=== PATIENT | female | born 1970 | race Two or more races ===

== ENCOUNTER 2017-08-11 07:55 | Outpatient (CLI) | payer OTHER ==
[~2017-08-11] VITALS: Ht 160 cm; Wt 107.5 kg
[2017-08-11] VITALS (10 sets, daily range): BP systolic 82–124; BP diastolic 51–77
[2017-08-11 08:23] LABS: BASO # 0.1 x10^3/uL (0.0-0.2); BASO % 1 % (0-3); EOS % 4 % (0-3); HEMATOCRIT 38.2 % (36.0-47.0); HEMOGLOBIN 12.4 g/dL (12.0-15.5); LYMPH # 3.2 x10^3/uL (1.0-4.8); LYMPH % 31 % (24-48); MEAN CORPUSCULAR HEMOGLOBIN 27 pg (25-35); MEAN CORPUSCULAR HGB CONC 33 g/dL (31-37); MEAN CORPUSCULAR VOLUME 84 fL (79-100); MONO % 6 % (0-9); NEUT % 58 % (31-73); PLATELET COUNT 426 x10^3/uL (140-400); RED BLOOD COUNT 4.53 x10^6/uL (3.50-5.40); RED CELL DISTRIBUTION WIDTH 16.4 % (11.5-14.5); WHITE BLOOD COUNT 10.4 x10^3/uL (4.0-11.0)
[2017-08-11 08:32] LABS: INR 1.2 (0.8-1.1); PROTHROMBIN TIME PATIENT 14.2 SEC (11.7-14.0)
[2017-08-11] MEDS ORDERED: LIDOCAINE 1% / SOD BICARB 8.4% 20 ML VIAL. IJ ONE ×2 (09:15→09:45)
[2017-08-11] MEDS ORDERED: GABA-586 PO (09:23)
[2017-08-11] MEDS ORDERED: MEDR10TA PO (09:23)
[2017-08-11] MEDS ORDERED: LISI-334 PO (09:23)
[2017-08-11] MEDS ORDERED: METF500T4 PO (09:23)
[2017-08-11] MEDS ORDERED: LEVO100T5 PO (09:23)
[2017-08-11] MEDS ORDERED: fentaNYL PF VIAL 100 MCG/2 ML VIAL ONE (09:31)
[2017-08-11] MEDS ORDERED: MIDAZOLAM HCL/PF 5 MG/5 ML VIAL. ONE (09:31)
[2017-08-11] MEDS ORDERED: MIDAZOLAM HCL/PF 5 MG/5 ML VIAL. IV ONE (09:45)
[2017-08-11] MEDS ORDERED: fentaNYL PF VIAL 100 MCG/2 ML VIAL IV ONE (09:45)
--- NOTE | 2017-08-11 10:44 | RAD ---
CT-guided bone marrow biopsy. 08/11/2017 10:40 AM Indication: CTBXBM/Leukocytosis Discussion: The risks and benefits of the procedure, including but not limited to, bleeding and infection were discussed patient. Informed consent was obtained. The patient was brought to the CT scanner and placed in the prone position. A timeout procedure was performed. Boiler Room Operator CT imaging of the pelvis demonstrated left ilium amenable to bone marrow biopsy. The overlying soft tissues were prepped and draped using maximum sterile barrier technique. 1% lidocaine without epinephrine was administered for local anesthesia. Under intermittent CT guidance, an OncControl needle was advanced into the bone marrow of the left iliac crest. 2 Aspirates and 1 core biopsy samples were obtained. Samples were delivered to pathology was present at the time of procedure. The needle was removed and manual pressure held to achieve hemostasis. No immediate complications were identified. The procedure was performed under conscious sedation including continuous cardiopulmonary monitoring via dedicated sedation nurse. Sedation time: 20 minutes Impression: Successful CT-guided bone marrow biopsy of the left iliac crest . PQRS Compliance Statement: One or more of the following individualized dose reduction techniques were utilized for this examination: 1. Automated exposure control 2. Adjustment of the mA and/or kV according to patient size 3. Use of iterative reconstruction technique
== END 2017-08-11 11:20 | disposition home or self-care (01) ==
LOC: INTRAD 07:55
PROVIDERS: ATTEND Internal Medicine Hematology & Oncology
DX: D72.829 Elevated white blood cell count, unspecified (principal); G62.9 Polyneuropathy, unspecified; I10 Essential (primary) hypertension; Z86.69 Personal history of other diseases of the nervous system and sense organs; Z90.49 Acquired absence of other specified parts of digestive tract; Z88.0 Allergy status to penicillin; Z79.01 Long term (current) use of anticoagulants
CPT/HCPCS: 36415; 38221; 77012; 85025; 85610; 88184; 88185; 88237; 99152; G0364; J2250; J3010

== ENCOUNTER 2017-10-13 13:51 | Emergency (ER) | payer OTHER ==
[2017-10-13 14:58] LABS: ADD MAN DIFF? NO
[2017-10-13 15:00] LABS: BASO # 0.1 x10^3/uL (0.0-0.2); BASO % 1 % (0-3); EOS # 0.6 x10^3/uL (0.0-0.7); EOS % 4 % (0-3); HEMATOCRIT 36.2 % (36.0-47.0); LYMPH % 20 % (24-48); MEAN CORPUSCULAR HEMOGLOBIN 28 pg (25-35); MEAN CORPUSCULAR HGB CONC 33 g/dL (31-37); MEAN CORPUSCULAR VOLUME 85 fL (79-100); MONO # 0.9 x10^3/uL (0.0-1.1); MONO % 6 % (0-9); NEUT # 10.5 x10^3uL (1.8-7.7); NEUT % 70 % (31-73); PLATELET COUNT 443 x10^3/uL (140-400); RED BLOOD COUNT 4.24 x10^6/uL (3.50-5.40); RED CELL DISTRIBUTION WIDTH 16.3 % (11.5-14.5); WHITE BLOOD COUNT 15.1 x10^3/uL (4.0-11.0)
[2017-10-13] MEDS: IV NORMAL SALINE 1000ML BAG 1,000 ML IV (15:04)
[2017-10-13] MEDS: ONDANSETRON PF 4 MG/2 ML VIAL. IV (15:04)
[2017-10-13] MEDS: fentaNYL PF VIAL 100 MCG/2 ML VIAL IV (15:05)
[2017-10-13 15:11] LABS: ANION GAP 12 (6-14); BLOOD UREA NITROGEN 12 mg/dL (7-20); BUN/CREATININE RATIO 20 (6-20); CALCIUM 8.7 mg/dL (8.5-10.1); CARBON DIOXIDE 25 mmol/L (21-32); CHLORIDE 103 mmol/L (98-107); CREATININE 0.6 mg/dL (0.6-1.0); GFR 108.1; GLUCOSE 93 mg/dL (70-99); POTASSIUM 3.9 mmol/L (3.5-5.1); SODIUM 140 mmol/L (136-145)
[2017-10-13 15:19] LABS: ALBUMIN 3.1 g/dL (3.4-5.0); ALBUMIN/GLOBULIN RATIO 0.7 (1.0-1.7); ALK PHOS 76 U/L (46-116); ALT (SGPT) 10 U/L (14-59); AST (SGOT) 17 U/L (15-37); LIPASE 88 U/L (73-393); TOTAL BILIRUBIN 0.4 mg/dL (0.2-1.0); TOTAL PROTEIN 7.3 g/dL (6.4-8.2)
== END 2017-10-13 16:37 | disposition home or self-care (01) ==
LOC: ER 13:51
DX: R10.10 Upper abdominal pain, unspecified (principal); E11.9 Type 2 diabetes mellitus without complications; E03.9 Hypothyroidism, unspecified; I10 Essential (primary) hypertension; Z90.49 Acquired absence of other specified parts of digestive tract; Z88.0 Allergy status to penicillin
CPT/HCPCS: 36415; 76700; 80053; 83690; 85025; 93005; 96361; 96374; 96375; 99285-25; J2405; J3010; J7030

== ENCOUNTER → 2018-03-11 | Outpatient (CLI) | payer OTHER | END | disposition home or self-care (01) | LOC: KCIC US 15:05 | DX: N83.01 Follicular cyst of right ovary (principal); N88.8 Other specified noninflammatory disorders of cervix uteri | CPT/HCPCS: 76830; 76856 ==

== ENCOUNTER 2018-05-28 20:37 | Emergency (ER) | payer OTHER ==
[~2018-05-28] VITALS: Ht 160 cm; Wt 90.7 kg
[~2018-05-28 20:37] MED LIST: GABA-586 PO; LEVO100T5 PO; LISI-334 PO; MEDR10TA PO; METF500T16 PO
[2018-05-28] MEDS ORDERED: fentaNYL PF VIAL 100 MCG/2 ML VIAL IV ONE (21:00)
[2018-05-28 21:11] LABS: BASO # 0.2 x10^3/uL (0.0-0.2); BASO % 1 % (0-3); EOS # 0.4 x10^3/uL (0.0-0.7); EOS % 2 % (0-3); HEMATOCRIT 36.7 % (36.0-47.0); HEMOGLOBIN 12.4 g/dL (12.0-15.5); LYMPH # 5.2 x10^3/uL (1.0-4.8); LYMPH % 28 % (24-48); MEAN CORPUSCULAR HEMOGLOBIN 27 pg (25-35); MEAN CORPUSCULAR HGB CONC 34 g/dL (31-37); MEAN CORPUSCULAR VOLUME 81 fL (79-100); MONO # 1.3 x10^3/uL (0.0-1.1); MONO % 7 % (0-9); NEUT # 11.5 x10^3uL (1.8-7.7); NEUT % 62 % (31-73); PLATELET COUNT 439 x10^3/uL (140-400); RED BLOOD COUNT 4.53 x10^6/uL (3.50-5.40); RED CELL DISTRIBUTION WIDTH 15.4 % (11.5-14.5); WHITE BLOOD COUNT 18.7 x10^3/uL (4.0-11.0)
[2018-05-28 21:12] LABS: BILIRUBIN,URINE NEGATIVE (NEG); CLARITY,URINE CLEAR; COLOR,URINE YELLOW; NITRITE,URINE NEGATIVE (NEG); PH,URINE 6.5; PROTEIN,URINE 100 mg/dL (NEG-TRACE); UROBILINOGEN,URINE 0.2 mg/dL (0.2 mg/dL)
[2018-05-28 21:18] LABS: BACTERIA,URINE 0 /HPF (0-FEW); RBC,URINE TNTC /HPF (0-2); SQUAMOUS EPITHELIAL CELL,UR FEW /LPF; WBC,URINE 0 /HPF (0-4)
[2018-05-28 21:19] LABS: CALCIUM 9.2 mg/dL (8.5-10.1); GFR 59.7; POTASSIUM 3.4 mmol/L (3.5-5.1)
[2018-05-28 21:25] LABS: ALBUMIN 3.4 g/dL (3.4-5.0); ALBUMIN/GLOBULIN RATIO 0.8 (1.0-1.7); TOTAL BILIRUBIN 0.8 mg/dL (0.2-1.0); TOTAL PROTEIN 7.5 g/dL (6.4-8.2)
[2018-05-28] MEDS ORDERED: CONTRAST GIVEN. MC PRN (21:30)
[2018-05-28] MEDS ORDERED: IOHEXOL 240 MG/ML 50ML VIAL. PO ONE (22:00)
[2018-05-28] MEDS ORDERED: IOHEXOL 300 MG/ML 100ML VIAL. IV ONE (22:00)
[2018-05-28 23:06] LABS: U PREG PATIENT NEGATIVE (NEG)
--- NOTE | 2018-05-28 23:08 | PHYS DOC ---
Past Medical History Past Medical History: Diabetes-Type II, Hypertension, Hypothyroid Past Surgical History: Cholecystectomy, Alcohol Use: None Drug Use: None Adult General Chief Complaint Chief Complaint: FLANK PAIN HPI HPI Patient is a 48 year old female who presents with left flank pain and upper quadrant pain. The patient was seen by Dr. Yao yesterday but never filled her prescription. She states that her pain has worsened and she has also been having anxiety attacks. She denies chest pain, shortness of air, nausea, vomiting or fever. Review of Systems Review of Systems Constitutional: Denies fever or chills [] Eyes: Denies change in visual acuity, redness, or eye pain [] HENT: Denies nasal congestion or sore throat [] Respiratory: Denies cough or shortness of breath [] Cardiovascular: No additional information not addressed in HPI [] GI: See history of present illness : Denies dysuria or hematuria [] Musculoskeletal: Denies back pain or joint pain [] Integument: Denies rash or skin lesions [] Neurologic: Denies headache, focal weakness or sensory changes [] Endocrine: Denies polyuria or polydipsia [] All other systems were reviewed and found to be within normal limits, except as documented in this note. Current Medications Current Medications Current Medications Medications (Trade) Dose Ordered Sig/Sohail Start Time Stop Time Status Last Admin Dose Admin Fentanyl Citrate (Fentanyl 2ml Vial) 50 mcg 1X ONCE 05/28/18 21:00 05/28/18 21:01 DC 05/28/18 21:22 50 MCG Info (CONTRAST GIVEN -- Rx MONITORING) 1 each PRN DAILY PRN 05/28/18 21:30 05/30/18 21:29 Iohexol (Omnipaque 240 Mg/ml) 30 ml 1X ONCE 05/28/18 22:00 05/28/18 22:01 DC 05/28/18 00:15 30 ML Iohexol (Omnipaque 300 Mg/ml) 75 ml 1X ONCE 05/28/18 22:00 05/28/18 22:01 DC 05/28/18 00:15 75 ML Lorazepam (Ativan) 2 mg 1X ONCE 05/28/18 21:00 05/28/18 21:01 DC 05/28/18 21:22 2 MG Allergies Allergies Allergies Coded Allergies Type Severity Reaction Last Updated Verified Penicillins Allergy Severe Swelling 08/11/17 Yes Physical Exam Physical Exam Constitutional: Well developed, well nourished, no acute distress, non-toxic appearance. [] HENT: Normocephalic, atraumatic, bilateral external ears normal, oropharynx moist, no oral exudates, nose normal. [] Eyes: PERRLA, EOMI, conjunctiva normal, no discharge. [] Neck: Normal range of motion, no tenderness, supple, no stridor. [] Cardiovascular:Heart rate regular rhythm, no murmur [] Lungs & Thorax: Bilateral breath sounds clear to auscultation [] Abdomen: Bowel sounds normal, left upper quadrant tenderness with guarding, left flank pain with palpation, no masses, no pulsatile masses. [] Skin: Warm, dry, no erythema, no rash. [] Neurologic: Alert and oriented X 3, normal motor function, normal sensory function, no focal deficits noted. [] Psychologic: Patient is extremely anxious Current Patient Data Vital Signs Vital Signs Date Time Temp Pulse Resp B/P (MAP) Pulse Ox O2 Delivery O2 Flow Rate FiO2 05/28/18 21:52 76 22 137/79 (98) 98 Room Air 05/28/18 21:00 97.7 97.7 Lab Values Laboratory Tests Test 05/28/18 20:57 05/28/18 21:02 White Blood Count 18.7 x10^3/uL (4.0-11.0) H Red Blood Count 4.53 x10^6/uL (3.50-5.40) Hemoglobin 12.4 g/dL (12.0-15.5) Hematocrit 36.7 % (36.0-47.0) Mean Corpuscular Volume 81 fL (79-100) Mean Corpuscular Hemoglobin 27 pg (25-35) Mean Corpuscular Hemoglobin Concent 34 g/dL (31-37) Red Cell Distribution Width 15.4 % (11.5-14.5) H Platelet Count 439 x10^3/uL (140-400) H Neutrophils (%) (Auto) 62 % (31-73) Lymphocytes (%) (Auto) 28 % (24-48) Monocytes (%) (Auto) 7 % (0-9) Eosinophils (%) (Auto) 2 % (0-3) Basophils (%) (Auto) 1 % (0-3) Neutrophils # (Auto) 11.5 x10^3uL (1.8-7.7) H Lymphocytes # (Auto) 5.2 x10^3/uL (1.0-4.8) H Monocytes # (Auto) 1.3 x10^3/uL (0.0-1.1) H Eosinophils # (Auto) 0.4 x10^3/uL (0.0-0.7) Basophils # (Auto) 0.2 x10^3/uL (0.0-0.2) Urine Collection Type U cath Urine Color Yellow Urine Clarity Clear Urine pH 6.5 Urine Specific [place] 1.020 Urine Protein 100 mg/dL (NEG-TRACE) Urine Glucose (UA) Negative mg/dL (NEG) Urine Ketones (Stick) Negative mg/dL (NEG) Urine Blood Large (NEG) Urine Nitrite Negative (NEG) Urine Bilirubin Negative (NEG) Urine Urobilinogen Dipstick 0.2 mg/dL (0.2 mg/dL) Urine Leukocyte Esterase Negative (NEG) Urine RBC Tntc /HPF (0-2) Urine WBC 0 /HPF (0-4) Urine Squamous Epithelial Cells Few /LPF Urine Bacteria 0 /HPF (0-FEW) Urine Mucus Slight /LPF Sodium Level 135 mmol/L (136-145) L Potassium Level 3.4 mmol/L (3.5-5.1) L Chloride Level 101 mmol/L (98-107) Carbon Dioxide Level 25 mmol/L (21-32) Anion Gap 9 (6-14) Blood Urea Nitrogen 15 mg/dL (7-20) Creatinine 1.0 mg/dL (0.6-1.0) Estimated GFR (Cockcroft-Gault) 59.7 BUN/Creatinine Ratio 15 (6-20) Glucose Level 145 mg/dL (70-99) H Calcium Level 9.2 mg/dL (8.5-10.1) Total Bilirubin 0.8 mg/dL (0.2-1.0) Aspartate Amino Transferase (AST) 18 U/L (15-37) Alanine Aminotransferase (ALT) 16 U/L (14-59) Alkaline Phosphatase 70 U/L (46-116) Total Protein 7.5 g/dL (6.4-8.2) Albumin 3.4 g/dL (3.4-5.0) Albumin/Globulin Ratio 0.8 (1.0-1.7) L Amylase Level 44 U/L (25-115) Lipase 109 U/L (73-393) Urine Test Negative (NEG) Laboratory Tests 05/28/18 20:57 Laboratory Tests 05/28/18 20:57 EKG EKG [] Radiology/Procedures Radiology/Procedures CT AB Pelv[] Impressions: [facility] [address] [place] [address] IMAGING REPORT Signed PATIENT: THO PRINCE ACCOUNT: [id number] : 1970 LOCATION: ER AGE: 48 SEX: F EXAM STATUS: REG ER ORD. PHYSICIAN: JOSE J WELSH APRN REASON: left upper quadrant pain PROCEDURE: CT ABD PELV W/ORAL&IV CONTRAST PQRS Compliance Statement: One or more of the following individualized dose reduction techniques were utilized for this examination: 1. Automated exposure control 2. Adjustment of the mA and/or kV according to patient size 3. Use of iterative reconstruction technique CT ABD PELV W/ORAL IV CONTRAST Clinical Indication: luq pain; Comparison: Pelvic ultrasound, March 11, 2018. Technique: Helical CT imaging of the abdomen and pelvis is performed after 75 cc of Omnipaque 300 IV contrast. Oral contrast also given. Findings: Mild bilateral dependent atelectasis. Cardiac size normal. Cholecystectomy. The liver, spleen, pancreas, adrenal glands, and abdominal aorta caliber are normal. Right kidney is normal. There is mild left hydronephrosis secondary to a 3 mm calculus at the ureteropelvic junction, image 37. Ureters are otherwise normal. The stomach is normal. No dilated small bowel. No colon wall thickening. The appendix is normal. No abdominal adenopathy or free fluid. Enlarged and myomatous uterus. The largest fibroid is at the fundus measuring up to 6.9 cm. Urinary bladder is mildly distended, otherwise normal. No pelvic free fluid. No acute bone abnormality. IMPRESSION: 1. Mild left obstructive uropathy secondary to a 3 mm calculus at the ureteropelvic junction. 2. Enlarged myomatous uterus. Electronically signed by: Ibrahima Gonzalez MD (05/29/2018 12:50 AM) [facility] DICTATED and SIGNED BY: IBRAHIMA GONZALEZ MD DATE: 05/29/18 0044 Course & Med Decision Making Course & Med Decision Making Pertinent Labs and Imaging studies reviewed. (See chart for details) []The patient has been given fentanyl and Ativan in the emergency department for her pain and anxiety. 2347: This patient was signed over to MICHEAL Amaral\ Patient CT scan shows mild left hydronephrosis second to a 3 mm stone in the uro pelvis junction. Patient also has large uterine fibroids. Patient is sent home with Flomax and tramadol for pain. Patient can take ibuprofen if needed also for pain. She'll use a strainer to collect any stone she may pass. Patient to call urology tomorrow morning. Dragon Disclaimer Dragon Disclaimer This electronic medical record was generated, in whole or in part, using a voice recognition dictation system. Departure Departure Impression: Primary Impression: Kidney stones Disposition: HOME, SELF-CARE Condition: STABLE Referrals: CHRISTINE YAO MD (PCP) DEVEN MENJIVAR MD Patient Instructions: Kidney Stones Additional Instructions: Call urology tomorrow to make an appointment. Drink plenty of fluids. Can use the pain medication as prescribed ibuprofen for pain. Strain urine and collect any stones that you may pass and take with you to your urology appointment. Scripts Tramadol Hcl (TRAMADOL HCL) 50 Mg Tablet 50 MG PO Q6HRS PRN for PAIN, #20 TAB Prov: BRITTANI SALVADOR APRN 05/29/18 Tamsulosin Hcl (FLOMAX) 0.4 Mg Cap.er.24h 1 CAP PO DAILY for 20 Days, #20 CAP 11 Refills Prov: BRITTANI SALVADOR APRN 05/29/18 JOSE J WELSH APRN May 28, 2018 23:08 BRITTANI SALVADOR APRN May 29, 2018 01:10
--- NOTE | 2018-05-29 00:53 | RAD ---
PQRS Compliance Statement: One or more of the following individualized dose reduction techniques were utilized for this examination: 1. Automated exposure control 2. Adjustment of the mA and/or kV according to patient size 3. Use of iterative reconstruction technique CT ABD PELV W/ORAL IV CONTRAST Clinical Indication: luq pain; Comparison: Pelvic ultrasound, March 11, 2018. Technique: Helical CT imaging of the abdomen and pelvis is performed after 75 cc of Omnipaque 300 IV contrast. Oral contrast also given. Findings: Mild bilateral dependent atelectasis. Cardiac size normal. Cholecystectomy. The liver, spleen, pancreas, adrenal glands, and abdominal aorta caliber are normal. Right kidney is normal. There is mild left hydronephrosis secondary to a 3 mm calculus at the ureteropelvic junction, image 37. Ureters are otherwise normal. The stomach is normal. No dilated small bowel. No colon wall thickening. The appendix is normal. No abdominal adenopathy or free fluid. Enlarged and myomatous uterus. The largest fibroid is at the fundus measuring up to 6.9 cm. Urinary bladder is mildly distended, otherwise normal. No pelvic free fluid. No acute bone abnormality. IMPRESSION: 1. Mild left obstructive uropathy secondary to a 3 mm calculus at the ureteropelvic junction. 2. Enlarged myomatous uterus. Electronically signed by: Ibrahima Gonzalez MD (05/29/2018 12:50 AM) [facility]
[2018-05-29] MEDS ORDERED: TRAM50TA PO (01:07)
[2018-05-29] MEDS ORDERED: TAMS0.4C97 PO (01:07)
[2018-05-29 01:13] VITALS: BP 146/62
== END 2018-05-29 01:16 | disposition home or self-care (01) ==
LOC: ER 20:37
DX: N20.0 Calculus of kidney (principal); F41.9 Anxiety disorder, unspecified; E11.9 Type 2 diabetes mellitus without complications; I10 Essential (primary) hypertension; E03.9 Hypothyroidism, unspecified; Z90.49 Acquired absence of other specified parts of digestive tract; Z98.890 Other specified postprocedural states; Z88.0 Allergy status to penicillin
CPT/HCPCS: 36415; 51701; 74177; 80053; 81001; 81025; 82150; 83690; 85025; 96374; 99285; J2060; J3010; Q9966; Q9967

== ENCOUNTER → 2018-06-10 | Outpatient (CLI) | payer OTHER ==
[2018-05-29 01:13] VITALS: BP 146/62
[~2018-06-10] MED LIST changes: +TAMS0.4C97 PO; +TRAM50TA PO
--- NOTE | 2018-06-10 15:13 | RAD ---
KUB, 06/10/2018: HISTORY: Left-sided back pain, ureteral calculus The abdominal gas pattern is unremarkable. The renal regions were partially obscured by overlying bowel. There is a tiny radiopacity projected over the left paraspinous region at the L3-4 level. This corresponds in size and location to the small proximal ureteral calculus seen on 05/29/2018. A small lower pelvic calcification on the right is likely a phlebolith. There is no evidence organomegaly. IMPRESSION: Unchanged small proximal left ureteral calculus. Electronically signed by: Ubaldo Fernandez MD (06/10/2018 3:10 PM) [facility]
== END | disposition home or self-care (01) ==
LOC: RAD 12:43
PROVIDERS: ATTEND Urology
DX: N20.1 Calculus of ureter (principal); I10 Essential (primary) hypertension; E11.9 Type 2 diabetes mellitus without complications; E03.9 Hypothyroidism, unspecified; Z90.49 Acquired absence of other specified parts of digestive tract; Z88.0 Allergy status to penicillin
CPT/HCPCS: 74018

== ENCOUNTER → 2019-03-05 | Outpatient (CLI) | payer OTHER ==
[~2019-03-05] MED LIST changes: -GABA-586 PO; +GABA300C18 PO
--- NOTE | 2019-03-05 13:22 | KCIC ---
CT ABDOMEN PELVIS WO CONTRAST Indication: Left flank pain. History of stones. Uterine fibroid. Exposure: One or more of the following individualized dose reduction techniques were utilized for this examination: 1. Automated exposure control 2. Adjustment of the mA and/or kV according to patient size 3. Use of iterative reconstruction technique. Comparison: Contrast study of May 29, 2018. Technique: No intravenous contrast given. No oral contrast per request. Findings: Evaluation of solid viscera, bowel and vasculature is compromised by the noncontrast technique. Lung bases are clear. Liver measures 21 cm compatible with enlargement. Appears similar as prior. Spleen not enlarged. Pancreas appears unremarkable. No evidence of adrenal mass. No evidence of urolithiasis or hydronephrosis. Gallbladder not seen. No aortic aneurysm. No significant lymph node enlargement. No significant small bowel distention. Mild retained stool through the colon. No evidence of acute colitis. The appendix appears normal. No evidence of ascites or pneumoperitoneum. Uterus demonstrates an enlarged and irregular appearance. Morphology is similar to previous exam. The largest lesion at the fundus appears more isodense on today's study. Small calcifications. Urinary bladder appears unremarkable. Tiny fat-containing anterior abdominal wall hernia. Mild degenerative changes of the spine. Degenerative changes at the skeletal pelvis. IMPRESSION: 1. Stable mild hepatomegaly. 2. No evidence of urolithiasis or urinary tract obstruction. 3. Large irregular uterus is again seen, may be due to fibroids. Electronically signed by: Mikey Palm MD (03/05/2019 1:19 PM) [facility]
== END | disposition home or self-care (01) ==
LOC: KCIC CT 10:52
PROVIDERS: ATTEND Family Medicine
DX: R16.0 Hepatomegaly, not elsewhere classified (principal); K43.9 Ventral hernia without obstruction or gangrene; D25.9 Leiomyoma of uterus, unspecified; N85.8 Other specified noninflammatory disorders of uterus
CPT/HCPCS: 74176

== ENCOUNTER 2019-07-28 06:04 | Inpatient (IN) | payer OTHER ==
[~2019-07-28] VITALS: Ht 160 cm; Wt 93.1 kg
[2019-07-28] VITALS (14 sets, daily range): BP systolic 114–157; BP diastolic 73–96
[~2019-07-28 06:04] MED LIST changes: +CLINDAMYCIN 900MG PREMIX 50 ML IV PRN; +FERR325T14 PO; +METO-239 PO; +NAPR-683 PO; +PANT40TA77 PO; +PROG100C15 PO
[2019-07-28] MEDS ORDERED: MORPHINE SULFATE 2 MG/ML VIAL. IV PRN ×2 (07:00→11:15)
[2019-07-28] MEDS ORDERED: PROCHLORPERAZINE 10 MG/2 ML VIAL. IV PRN (07:00)
[2019-07-28] MEDS ORDERED: IV RINGERS,LACTATED 1000ML 1,000 ML IV SCH (07:00)
[2019-07-28] MEDS ORDERED: fentaNYL PF VIAL 100 MCG/2 ML VIAL IV PRN ×2 (07:00)
[2019-07-28] MEDS ORDERED: LIDOCAINE 1% PF 2 ML VIAL. ID PRN (07:00)
[2019-07-28] MEDS ORDERED: ONDANSETRON PF 4 MG/2 ML VIAL. IV PRN ×2 (07:00→11:15)
[2019-07-28] MEDS ORDERED: CLINDAMYCIN PREMIX 900 MG/50 ML BAG IV ONE (07:00)
[2019-07-28] MEDS ORDERED: DEXAMETHASONE SOD PHOS 4 MG/ML VIAL ONE (07:05)
[2019-07-28] MEDS ORDERED: ONDANSETRON PF 4 MG/2 ML VIAL. ONE (07:05)
[2019-07-28] MEDS ORDERED: PROPOFOL 20 ML IV ONE (07:05)
[2019-07-28] MEDS ORDERED: LIDOCAINE 1% PF 5 ML VIAL. ONE (07:05)
[2019-07-28] MEDS ORDERED: fentaNYL PF VIAL 100 MCG/2 ML VIAL ONE ×2 (07:05→08:11)
[2019-07-28] MEDS ORDERED: MIDAZOLAM HCL/PF 2 MG/2 ML VIAL. ONE (07:06)
[2019-07-28 07:10] LABS: BASO # 0.1 x10^3/uL (0.0-0.2); BASO % 1 % (0-3); EOS # 0.5 x10^3/uL (0.0-0.7); EOS % 3 % (0-3); HEMATOCRIT 38.5 % (36.0-47.0); HEMOGLOBIN 12.7 g/dL (12.0-15.5); LYMPH # 3.7 x10^3/uL (1.0-4.8); LYMPH % 24 % (24-48); MEAN CORPUSCULAR HEMOGLOBIN 30 pg (25-35); MEAN CORPUSCULAR HGB CONC 33 g/dL (31-37); MEAN CORPUSCULAR VOLUME 92 fL (79-100); MONO # 1.1 x10^3/uL (0.0-1.1); MONO % 7 % (0-9); NEUT # 10.4 x10^3/uL (1.8-7.7); NEUT % 66 % (31-73); PLATELET COUNT 461 x10^3/uL (140-400); RED CELL DISTRIBUTION WIDTH 14.5 % (11.5-14.5); WHITE BLOOD COUNT 15.7 x10^3/uL (4.0-11.0)
[2019-07-28] MEDS ORDERED: ROCURONIUM 50 MG/5 ML VIAL. ONE (08:22)
[2019-07-28] MEDS ORDERED: HYDROmorphone 2 MG/ML VIAL ONE (08:31)
[2019-07-28] MEDS ORDERED: SEVOFLURANE > 120 MINUTES. IH ONE (08:47)
[2019-07-28] MEDS ORDERED: NEOSTIGMINE METHYLSULFATE 5 MG/5 ML SYRINGE. ONE (09:22)
[2019-07-28] MEDS ORDERED: GLYCOPYRROLATE 1 MG/5 ML VIAL. ONE (09:22)
[2019-07-28] MEDS: IV NORMAL SALINE 1000ML BAG 1,000 ML IV SCH (11:06)
[2019-07-28] MEDS ORDERED: 0.9 % SODIUM CHLORIDE 10 ML DISP.SYRIN. IV PRN (11:15)
[2019-07-28] MEDS ORDERED: NALOXONE 0.4 MG/ML VIAL. IV PRN (11:15)
[2019-07-28] MEDS ORDERED: DEXTROSE 50% 25 GM / 50ML DISP.SYRIN. IV PRN (11:15)
--- NOTE | 2019-07-28 11:15 | PDOC ---
BRIEF OPERATIVE NOTE Pre-Op Diagnosis leiomyomata AUB Post-Op Diagnosis Same Procedure Performed [facility] Surgeon Finesse Hernandez Anesthesia Type: General Blood Loss 500cc Specimens Obtained uterus bilateral ovaducts Complications None KIRSTEN BAI MD Jul 28, 2019 11:15
[2019-07-28] MEDS ORDERED: INSULIN LISPRO 100 UNIT/ML 3ML VIAL for OP,RR ONLY. SQ PRN (11:30)
[2019-07-28] MEDS: HYDROmorphone 2 MG/ML VIAL IV PRN ×3 (11:36→12:02)
[2019-07-28] MEDS: oxyCODONE/APAP 5/325 1 TAB TABLET PO PRN ×2 (13:08→21:05)
[2019-07-28] MEDS: oxyCODONE IR 5 MG TABLET PO PRN (16:17)
[2019-07-28] MEDS: CLINDAMYCIN 900MG PREMIX 50 ML IV SCH (16:17)
[2019-07-28] MEDS: METOCLOPRAMIDE HCL 10 MG/2 ML VIAL. IV PRN (18:05)
[2019-07-29] MEDS: CLINDAMYCIN 900MG PREMIX 50 ML IV SCH ×2 (00:11→08:34)
[2019-07-29 03:00] VITALS: BP 137/86
[2019-07-29] MEDS: oxyCODONE/APAP 5/325 1 TAB TABLET PO PRN ×5 (03:32→21:50)
[2019-07-29 07:00] VITALS: BP 140/83
[2019-07-29] MEDS: IV NORMAL SALINE 1000ML BAG 1,000 ML IV SCH (07:12)
[2019-07-29] MEDS: METOCLOPRAMIDE HCL 10 MG/2 ML VIAL. IV PRN (08:33)
[2019-07-29 10:57] VITALS: BP 146/80
[2019-07-29 14:23] VITALS: BP 152/86
[2019-07-29] MEDS: MAGNESIUM HYDROXIDE 2,400 MG/30 ML ORAL.SUSP. PO PRN (15:13)
--- NOTE | 2019-07-29 16:30 | PDOC ---
Provider Note Provider Note Stable C/O constipation VSS Dressing CDI FU in AM KIRSTEN BAI MD Jul 29, 2019 16:30
[2019-07-29 17:36] LABS: BASO # 0.2 x10^3/uL (0.0-0.2); BASO % 1 % (0-3); EOS # 0.1 x10^3/uL (0.0-0.7); EOS % 0 % (0-3); HEMOGLOBIN 10.4 g/dL (12.0-15.5); LYMPH # 4.6 x10^3/uL (1.0-4.8); LYMPH % 21 % (24-48); MEAN CORPUSCULAR HEMOGLOBIN 31 pg (25-35); MEAN CORPUSCULAR HGB CONC 34 g/dL (31-37); MEAN CORPUSCULAR VOLUME 92 fL (79-100); MONO # 1.4 x10^3/uL (0.0-1.1); MONO % 7 % (0-9); NEUT # 15.4 x10^3/uL (1.8-7.7); NEUT % 71 % (31-73); PLATELET COUNT 428 x10^3/uL (140-400); RED BLOOD COUNT 3.37 x10^6/uL (3.50-5.40); RED CELL DISTRIBUTION WIDTH 14.7 % (11.5-14.5); WHITE BLOOD COUNT 21.7 x10^3/uL (4.0-11.0)
--- NOTE | 2019-07-29 17:49 | OP ---
DATE OF SURGERY: 07/28/2019 PREOPERATIVE DIAGNOSES: Symptomatic leiomyomata, abnormal uterine bleeding. POSTOPERATIVE DIAGNOSES: Symptomatic leiomyomata, abnormal uterine bleeding. PROCEDURE: Total abdominal hysterectomy, bilateral salpingectomy. SURGEON: Red Kilpatrick MD ECONOMICS INSTRUCTOR: Juan Daniel Hernandez MD ANESTHESIA: General. ESTIMATED BLOOD LOSS: 500 mL. SPECIMENS: Uterus, bilateral oviducts. COMPLICATIONS: None. CONDITION: Stable. DESCRIPTION OF PROCEDURE: After risks, benefits, indications, alternatives, and expectations were discussed in detail with the patient, the patient was brought to OR theater and placed in the supine position. After adequate general anesthesia, the patient was prepped and draped in usual sterile manner. Previous midline incision was incised sharply with a scalpel, carried down through subcutaneous tissue with a scalpel. It was nicked in the midline with scalpel and extended superiorly and inferiorly with Bovie cautery and De Leon scissors. Peritoneum was entered. Room was made to place the O'Sergio-O'Castaneda retractor. The patient was placed in Trendelenburg. Intestine was packed cephalad. Uterus was grasped with single tooth tenaculum, delivered out of the incision. The uterus was approximately 15-16 weeks size with multiple fibroids. The tubes were taken out bilaterally with EnSeal device and labeled as such and handed off the operative field. First on left side, the uteroovarian ligament was taken down, round ligament was taken down. This procedure was also carried out on the opposite side secondary to the globular and large nature of the fundal fibroids. These were enucleated in the usual fashion using Bovie cautery and scalpel. Bleeding was controlled with clamps and eomfye-am-dmuop stitches. Bladder flap was created sharply with Metzenbaum scissors and sponge stick. Dr. Hernandez came to assist. Remaining of the broad ligament and Isidro ligament was taken down with clamp, cut, tie fashion. Remaining of the fundal and posterior lower segment fibroid was enucleated and excised to make room to visualize remaining of the surgery. Straight Heaneys were used to take down the remaining uterosacral and parametrial attachments were clamped, cut, and tie fashion. Curved Heaneys were placed across the proximal vagina. Abhishek scissors were used to transect the remaining attachments and the remaining lower uterine segment and cervix was handed off the operative field. Vaginal apex was closed with rxhduk-ae-yjaej stitches. Good hemostasis was assured. Ureters were inspected and noted to be peristalsing and intact. Copious irrigation was used and no further bleeding was noted. O'Sergio-O'Castaneda was removed. Vaginal packing was removed. Sponges were accounted for. The intestines were allowed to fall back within their normal location. The fascia was reapproximated with 1-0 Prolene double stranded looped in a usual fashion. Skin was reapproximated with jeffery. Sponge, needle and instrument counts were correct x 2 per nursing staff. The patient went to postop anesthesia recovery in stable condition. RED KILPATRICK MD DR: HERMAN/godfrey JOB#: [id number] / [id number]
[2019-07-29 17:51] LABS: % BANDS 3 % (0-9); % LYMPHS 19 % (24-48); % MONOS 4 % (0-10); % SEGS 74 % (35-66); PLT ESTIMATE INCREASED (ADEQUATE)
[2019-07-29 17:52] LABS: TOXIC GRANULATION PRESENT
--- NOTE | 2019-07-29 18:06 | PATHOLOGY ---
[facility] Accession Number: [id number] . 01 Material submitted: . PART A: fallopian tube - LEFT FALLIOPIAN TUBE. Modifiers: left PART B: fallopian tube - RIGHT FALLOPIAN TUBE. Modifiers: right PART C: uterus - UTERUS WITH CERVIX AND FIBROIDS . 01 Clinical history: . AUB, fibroids . 02 Diagnosis: A. Fallopian tube, left salpingectomy: - Paratubal cyst. . B. Fallopian tube, right salpingectomy: - Small paratubal cyst. . C. Uterine corpus, segments of myometrial tissue, and detached cervix, total abdominal hysterectomy: - Leiomyomas, uterine corpus, submucosal/intramural/subserosal, multiple, the largest measuring 7.0 cm in greatest dimension, showing focal degenerative changes (uterine weight 496 grams). - Endocervical polyp. - Nabothian cysts and endocervical gland tunnel clusters of cervix. - Proliferative endometrium. - Adenomyosis, uterine corpus, focal. LBQ 07/29/2019 1710 Local . 02 Comment: There is no evidence of malignancy. (JPM/db; 07/29/2019) . 02 Electronically signed: . Chris Lopez MD, Pathologist NPI- [id number] . 01 Gross description: . A. The specimen is received in formalin, labeled "Lorraine Chery, left fallopian tube" and consists of a pink-purple fimbriated fallopian tube segment measuring 6.8 cm in length and up to 0.5 cm in diameter. Sectioning reveals a well-defined central lumen and a paratubal cyst containing clear fluid measuring 0.6 cm. Spray Machine Operator sections are submitted in A1. . B. The specimen is received in formalin, labeled "Lorraine Chery, right fallopian tube" and consists of a purple-pink fimbriated fallopian tube segment measuring 9.0 cm in length and 0.5 cm in diameter. Sectioning reveals a well-defined central lumen and pharmaceutical specialty representative sections are submitted in B1. . C. The specimen is received in formalin, labeled "Lorraine Chery, uterus with cervix and fibroids" and consists of a morcellated uterus with detached cervix and segments of fibroids measuring 19.0 x 15.2 x 6.4 cm in aggregate weighing 496 g. The uterine serosa is pink-herron, nodular, and hemorrhagic. The detached cervix displays an oval 0.5 cm cervical os which is surrounded by glistening pink-hreron ectocervical mucosa. The segment is bivalved revealing nabothian cysts and a corrugated endocervical canal measuring at least 4.5 cm in length. There is an endocervical polyp measuring 2.2 x 0.8 cm. Serial sectioning the segments of uterine corpus reveal a partial endometrial cavity measuring 2.2 x 2.5 cm displaying a pink-herron endometrium measuring 0.1 cm. Multiple subserosal, intramural, and submucosal nodules are present measuring up to 2.3 cm. These nodules show white whorled cut surfaces with one having a focus of hemorrhage. . The separately received nodules measure up to 7.0 cm with the largest showing possible degenerative changes. The other additionally received nodules show whorled white cut surfaces with multifocal areas of hemorrhage. No additional masses or lesions identified. Spray Machine Operator sections are submitted as follows: . C1-C2: Opposing cervix C3: Endocervical polyp C4-C5: Opposing endomyometrium C6: Intramural nodule with hemorrhage C7-C8: Additional uterine corpus nodules C9-C10: Nodule with degenerative changes C11: Additionally received nodule with hemorrhage and random pharmaceutical specialty representative additionally received nodule (SDY; 07/28/2019) SYU/SYU 07/29/2019 1703 Local . 02 Pathologist provided ICD-10: D25.1, D25.2, N84.1, N80.0, N83.8 . 02 CPT . 859754, 086749, 255800 Specimen Comment: Report sent to / DR SARAVIA Performed at: [address], [place] [id number] MD Gagan Cole MD Phone: [phone] Performed at: [address] [id number] MD Chris Lopez MD Phone: [phone]
[2019-07-29 19:40] VITALS: BP 126/69
[2019-07-29] MEDS: oxyCODONE IR 5 MG TABLET PO PRN (20:02)
[2019-07-29] MEDS: METOPROLOL SUCC 24HR ER 25 MG TAB.ER.24H. PO SCH ×2 (21:00→21:12)
--- NOTE | 2019-07-29 21:10 | NUR ---
Went in to give patient her scheduled dose of Metoprolol, pt. stated that she took her own supply. This nurse did not give the metoprolol at this time.
[2019-07-29] MEDS: DOCUSATE SODIUM 100 MG CAPSULE. PO PRN (21:49)
[2019-07-29 23:50] VITALS: BP 126/74
[2019-07-30] MEDS: oxyCODONE/APAP 5/325 1 TAB TABLET PO PRN ×4 (01:54→20:56)
[2019-07-30] MEDS: diphenhydrAMINE HCL 25 MG CAPSULE PO PRN ×3 (01:56→20:55)
[2019-07-30 05:40] VITALS: BP 120/67
[2019-07-30] MEDS: LEVOTHYROXINE 100 MCG TABLET PO SCH (06:00)
--- NOTE | 2019-07-30 06:23 | NUR ---
Pt. states that she took her own Synthroid and Protonix.
[2019-07-30 07:00] VITALS: BP 133/78
[2019-07-30] MEDS: PANTOPRAZOLE 40 MG TABLET.DR. PO SCH (07:30)
[2019-07-30] MEDS: DOCUSATE SODIUM 100 MG CAPSULE. PO PRN ×2 (08:05→16:26)
--- NOTE | 2019-07-30 08:11 | NUR ---
Did not administer Protonix because patient stated she took own Omeprazole at bedside.
[2019-07-30 10:53] VITALS: BP 138/68
[2019-07-30] MEDS: IV NORMAL SALINE 1000ML BAG 1,000 ML IV SCH (11:06)
--- NOTE | 2019-07-30 11:30 | NUR ---
Patient reported itching so po Benadryl administered per patient requested.
[2019-07-30] MEDS: oxyCODONE IR 5 MG TABLET PO PRN ×2 (12:10)
--- NOTE | 2019-07-30 14:34 | PDOC ---
Provider Note Provider Note Progressing VSS dressing CDI encourage ambulation FU in AM KIRSTEN BAI MD Jul 30, 2019 14:34
[2019-07-30 15:00] VITALS: BP 143/79
--- NOTE | 2019-07-30 18:28 | NUR ---
Patient's Prevena drain beeped numerous times this shift, patient then c/o new pain in area of abdomen near belly button. This nurse gave call to Dr. Kilpatrick who ordered to removed drain and dressing and place light dressing. This nurse removed Prevena and replaced with ABD pad and surgical tape. Will continue to monitor dressing status.
[2019-07-30] MEDS: MAG HYDROX/ALUMINUM HYD/SIMETH 30 ML ORAL.SUSP PO PRN (18:33)
[2019-07-30 20:40] VITALS: BP 142/73
[2019-07-30] MEDS: METOPROLOL SUCC 24HR ER 25 MG TAB.ER.24H. PO SCH (21:00)
[2019-07-31] MEDS: oxyCODONE/APAP 5/325 1 TAB TABLET PO PRN ×4 (02:44→16:16)
[2019-07-31] MEDS: MAG HYDROX/ALUMINUM HYD/SIMETH 30 ML ORAL.SUSP PO PRN ×2 (02:45→16:56)
[2019-07-31] MEDS: LEVOTHYROXINE 100 MCG TABLET PO SCH (06:00)
[2019-07-31 06:20] VITALS: BP 131/64
[2019-07-31] MEDS: PANTOPRAZOLE 40 MG TABLET.DR. PO SCH (07:30)
[2019-07-31] MEDS: METOPROLOL SUCC 24HR ER 25 MG TAB.ER.24H. PO SCH (07:37)
[2019-07-31 12:00] VITALS: BP 134/73
[2019-07-31] MEDS ORDERED: OXYC1TAB15 PO (13:15)
[2019-07-31] MEDS ORDERED: NAPR-514 PO (13:15)
--- NOTE | 2019-07-31 13:19 | DS ---
DATE OF DISCHARGE: 07/31/2019 ADMISSION DIAGNOSES: Abnormal uterine bleeding and symptomatic leiomyomata. DISCHARGE DIAGNOSES: Abnormal uterine bleeding, symptomatic leiomyomata, status post total abdominal hysterectomy with bilateral salpingectomy. HOSPITAL COURSE: The patient's hospital course was pretty much unremarkable. Postop H and H was 10.4 and 31.0, down from 12.7 and 38.5. On postop day #1, the patient was tolerating pain well. She did ambulate with assistance. Hopson was removed. The patient was tolerating a diet she was given postop day #2. The patient was complaining of some back pain, some discomfort. Incision was without any signs of infection. Secondary to the patient's decreased ambulation, she was kept another day. Vital signs remained stable. On the day of discharge, she was doing well, ambulating halls without assistance, voiding without any difficulty. The incision was without any signs of infection. Vital signs are stable. She was discharged home in stable condition. Routine discharge instructions were given. The patient was discharged on Percocet #40 and naproxen #60 The patient is to follow up with me in 1 week. KIRSTEN BAI MD DR: HERMAN/godfrey JOB#: [id number] / [id number]
[2019-07-31] MEDS: MAGNESIUM HYDROXIDE 2,400 MG/30 ML ORAL.SUSP. PO PRN (13:35)
[2019-07-31] MEDS: DOCUSATE SODIUM 100 MG CAPSULE. PO PRN (13:36)
--- NOTE | 2019-07-31 18:21 | NUR ---
Discharge Note: ALESSANDRA PRINCE Discharge instructions and discharge home medications reviewed with Patient and a copy given. All questions have been answered and understanding verbalized. Pt. follow up appointments were reviewed. The following instructions and handouts were given: Hysterectomy information, Hysterectomy Care After. Discontinued lines and drains: peripheral IV in left hand removed. Catheter intact. No complications. Patient discharged to home with self-care via ambulation to private vehicle. Pt. was at bedside for discharge instructions. Pt. declined WC and walked with steady gait to vehilce.
== END 2019-07-31 18:10 | disposition home or self-care (01) | DRG 743 ==
LOC: OPSVCIP 06:04 → 3 NORTH 12:35
PROVIDERS: ADMIT Specialist; ATTEND Specialist
PROC: 0UT70ZZ Resection of Bilateral Fallopian Tubes, Open Approach (ICD-10-PCS; 2019-07-28)
PROC: 0UT90ZZ Resection of Uterus, Open Approach (ICD-10-PCS; principal; 2019-07-28 07:30)
DX: D25.9 Leiomyoma of uterus, unspecified (principal); N93.9 Abnormal uterine and vaginal bleeding, unspecified; Z88.0 Allergy status to penicillin; Z90.49 Acquired absence of other specified parts of digestive tract; E03.9 Hypothyroidism, unspecified; E11.9 Type 2 diabetes mellitus without complications
CPT/HCPCS: 36415; 81025; 82962; 85007; 85025; 86850; 86900; 86901; 88302; 88307; A7015; J1100; J1170; J1815; J2250; J2405; J2704; J2710; J2765; J3010; J3490; J7120; Q0163; A4461; G0378

== ENCOUNTER 2019-08-13 11:46 | Inpatient (IN) | payer OTHER ==
[~2019-08-13] VITALS: Ht 160 cm; Wt 91.6 kg
[~2019-08-13 11:46] MED LIST changes: -CLINDAMYCIN 900MG PREMIX 50 ML IV PRN; +NAPR-514 PO; +OXYC1TAB15 PO
[2019-08-13 13:16] LABS: BASO # 0.1 x10^3/uL (0.0-0.2); BASO % 1 % (0-3); EOS # 0.7 x10^3/uL (0.0-0.7); EOS % 4 % (0-3); HEMATOCRIT 28.6 % (36.0-47.0); HEMOGLOBIN 9.7 g/dL (12.0-15.5); LYMPH # 3.7 x10^3/uL (1.0-4.8); LYMPH % 20 % (24-48); MEAN CORPUSCULAR HEMOGLOBIN 29 pg (25-35); MEAN CORPUSCULAR HGB CONC 34 g/dL (31-37); MEAN CORPUSCULAR VOLUME 86 fL (79-100); MONO # 0.7 x10^3/uL (0.0-1.1); MONO % 4 % (0-9); NEUT # 13.2 x10^3/uL (1.8-7.7); NEUT % 72 % (31-73); PLATELET COUNT 749 x10^3/uL (140-400); RED BLOOD COUNT 3.33 x10^6/uL (3.50-5.40); RED CELL DISTRIBUTION WIDTH 15.9 % (11.5-14.5); WHITE BLOOD COUNT 18.3 x10^3/uL (4.0-11.0)
[2019-08-13 13:46] LABS: CALCIUM 8.5 mg/dL (8.5-10.1); CREATININE 0.9 mg/dL (0.6-1.0); GFR 67.1; POTASSIUM 3.9 mmol/L (3.5-5.1)
[2019-08-13 13:51] LABS: ALBUMIN 2.8 g/dL (3.4-5.0); ALBUMIN/GLOBULIN RATIO 0.7 (1.0-1.7); MAGNESIUM 1.7 mg/dL (1.8-2.4); TOTAL BILIRUBIN 0.3 mg/dL (0.2-1.0); TOTAL PROTEIN 7.1 g/dL (6.4-8.2)
[2019-08-13 14:00] LABS: BILIRUBIN,URINE NEGATIVE (NEG); CLARITY,URINE CLEAR; COLOR,URINE YELLOW; NITRITE,URINE NEGATIVE (NEG); PH,URINE 5.5; PROTEIN,URINE 30 mg/dL (NEG-TRACE); UROBILINOGEN,URINE 0.2 mg/dL (0.2 mg/dL)
[2019-08-13] MEDS ORDERED: IOHEXOL 300 MG/ML 100ML VIAL. IV ONE (14:00)
[2019-08-13] MEDS ORDERED: CONTRAST GIVEN. MC PRN (14:00)
[2019-08-13 14:08] LABS: HYALINE CASTS, URINE MODERATE /HPF; SQUAMOUS EPITHELIAL CELL,UR MANY /LPF
[2019-08-13 14:09] LABS: BACTERIA,URINE MANY /HPF (0-FEW); WBC,URINE >40 /HPF (0-4)
--- NOTE | 2019-08-13 14:43 | RAD ---
CT of the abdomen and pelvis with IV contrast 08/13/2019 INDICATION: Intra-abdominal wound dehiscence. COMPARISON STUDY: CT of the abdomen and pelvis without contrast March 05, 2019. FINDINGS: Cholecystectomy noted. Solid viscera of the abdomen are otherwise grossly similar. Probable hepatic steatosis noted. There is no bowel obstruction. Gas and stool extend to the rectum. The appendix is grossly unremarkable. Hysterectomy noted. Left ovary appears to be present. Right ovary not definitively seen. Some stranding in the pelvis, possibly postoperative is seen. In the anterior abdominal wall there is subcutaneous fat stranding and edema with associated gas collection extending from what appears to be the skin to the anterior aspect of the anterior abdominal wall. Thickening of the anterior abdominal wall is seen. Given history of open wound, gas likely extends from the skin wound to this collection. No organized abscess is not seen. Tiny adjacent fat filled umbilical hernia (sagittal image 48). Gas does not extend into the peritoneum. No acute osseous changes are seen. IMPRESSION: 1. Findings consistent with dehiscence of anterior abdominal wound, with significant surrounding inflammatory change. No organized fluid collection or abscess is seen. 2. Recent hysterectomy CT DOSING PQRS STATEMENT: One or more of the following individualized dose reduction techniques were utilized for this examination: 1. Automated exposure control 2. Adjustment of the mA and/or kV according to patient size 3. Use of iterative reconstruction technique Electronically signed by: Gianni Hudson MD (08/13/2019 2:40 PM) [id number]
[2019-08-13 15:11] LABS: % ATYL 2 % (0-0); % BANDS 8 % (0-9); % EOS 3 % (0-5); % LYMPHS 18 % (24-48); % MONOS 2 % (0-10)
[2019-08-13 15:14] LABS: % MYELOS 2 % (0-0); % SEGS 65 % (35-66); ANISOCYTOSIS SLIGHT; PLT ESTIMATE INCREASED (ADEQUATE); POLYCHROMASIA SLIGHT
[2019-08-13] MEDS ORDERED: IV NORMAL SALINE 1000ML BAG 1,000 ML IV ONE (15:30)
--- NOTE | 2019-08-13 15:35 | PHYS DOC ---
Past Medical History Past Medical History: Diabetes-Type II, Hypertension, Hypothyroid, Kidney Stone Past Surgical History: Cholecystectomy, , Hysterectomy Alcohol Use: None Drug Use: None Adult General Chief Complaint Chief Complaint: WOUND CHECK HPI HPI Patient is a 49 year old [f__sex] who presents with [] Review of Systems Review of Systems Constitutional: Denies fever or chills [] Eyes: Denies change in visual acuity, redness, or eye pain [] HENT: Denies nasal congestion or sore throat [] Respiratory: Denies cough or shortness of breath [] Cardiovascular: No additional information not addressed in HPI [] GI: Denies abdominal pain, nausea, vomiting, bloody stools or diarrhea [] : Denies dysuria or hematuria [] Musculoskeletal: Denies back pain or joint pain [] Integument: Denies rash or skin lesions [] Neurologic: Denies headache, focal weakness or sensory changes [] Endocrine: Denies polyuria or polydipsia [] All other systems were reviewed and found to be within normal limits, except as documented in this note. Current Medications Current Medications Current Medications Medications (Trade) Dose Ordered Sig/Sohail Start Time Stop Time Status Last Admin Dose Admin Info (CONTRAST GIVEN -- Rx MONITORING) 1 each PRN DAILY PRN 08/13/19 14:00 08/15/19 13:59 Iohexol (Omnipaque 300 Mg/ml) 75 ml 1X ONCE 08/13/19 14:00 08/13/19 14:01 DC 08/13/19 14:02 75 ML Allergies Allergies Allergies Coded Allergies Type Severity Reaction Last Updated Verified Penicillins Allergy Severe Swelling 07/28/19 Yes Physical Exam Physical Exam Constitutional: Well developed, well nourished, no acute distress, non-toxic appearance. [] HENT: Normocephalic, atraumatic, bilateral external ears normal, oropharynx moist, no oral exudates, nose normal. [] Eyes: PERRLA, EOMI, conjunctiva normal, no discharge. [] Neck: Normal range of motion, no tenderness, supple, no stridor. [] Cardiovascular:Heart rate regular rhythm, no murmur [] Lungs & Thorax: Bilateral breath sounds clear to auscultation [] Abdomen: Bowel sounds normal, soft, no tenderness, no masses, no pulsatile masses. [] Skin: Warm, dry, no erythema, no rash. [] Back: No tenderness, no CVA tenderness. [] Extremities: No tenderness, no cyanosis, no clubbing, ROM intact, no edema. [] Neurologic: Alert and oriented X 3, normal motor function, normal sensory function, no focal deficits noted. [] Psychologic: Affect normal, judgement normal, mood normal. [] Current Patient Data Vital Signs Vital Signs Date Time Temp Pulse Resp B/P (MAP) Pulse Ox O2 Delivery O2 Flow Rate FiO2 08/13/19 14:43 76 18 137/65 (89) 97 08/13/19 12:05 98.5 Room Air 98.5 Lab Values Laboratory Tests Test 08/13/19 12:39 08/13/19 13:45 White Blood Count 18.3 x10^3/uL (4.0-11.0) H Red Blood Count 3.33 x10^6/uL (3.50-5.40) L Hemoglobin 9.7 g/dL (12.0-15.5) L Hematocrit 28.6 % (36.0-47.0) L Mean Corpuscular Volume 86 fL (79-100) Mean Corpuscular Hemoglobin 29 pg (25-35) Mean Corpuscular Hemoglobin Concent 34 g/dL (31-37) Red Cell Distribution Width 15.9 % (11.5-14.5) H Platelet Count 749 x10^3/uL (140-400) H Neutrophils (%) (Auto) 72 % (31-73) Lymphocytes (%) (Auto) 20 % (24-48) L Monocytes (%) (Auto) 4 % (0-9) Eosinophils (%) (Auto) 4 % (0-3) H Basophils (%) (Auto) 1 % (0-3) Neutrophils # (Auto) 13.2 x10^3/uL (1.8-7.7) H Lymphocytes # (Auto) 3.7 x10^3/uL (1.0-4.8) Monocytes # (Auto) 0.7 x10^3/uL (0.0-1.1) Eosinophils # (Auto) 0.7 x10^3/uL (0.0-0.7) Basophils # (Auto) 0.1 x10^3/uL (0.0-0.2) Segmented Neutrophils % 65 % (35-66) Band Neutrophils % 8 % (0-9) Lymphocytes % 18 % (24-48) L Atypical Lymphocytes % (Manual) 2 % (0-0) H Monocytes % 2 % (0-10) Eosinophils % 3 % (0-5) Myelocytes % 2 % (0-0) H Platelet Estimate Increased (ADEQUATE) Large Platelets Few Giant Platelets Occ Polychromasia Slight Anisocytosis Slight Sodium Level 138 mmol/L (136-145) Potassium Level 3.9 mmol/L (3.5-5.1) Chloride Level 102 mmol/L (98-107) Carbon Dioxide Level 25 mmol/L (21-32) Anion Gap 11 (6-14) Blood Urea Nitrogen 14 mg/dL (7-20) Creatinine 0.9 mg/dL (0.6-1.0) Estimated GFR (Cockcroft-Gault) 67.1 BUN/Creatinine Ratio 16 (6-20) Glucose Level 157 mg/dL (70-99) H Lactic Acid Level 2.5 mmol/L (0.4-2.0) H Calcium Level 8.5 mg/dL (8.5-10.1) Magnesium Level 1.7 mg/dL (1.8-2.4) L Total Bilirubin 0.3 mg/dL (0.2-1.0) Aspartate Amino Transferase (AST) 10 U/L (15-37) L Alanine Aminotransferase (ALT) 6 U/L (14-59) L Alkaline Phosphatase 85 U/L (46-116) Total Protein 7.1 g/dL (6.4-8.2) Albumin 2.8 g/dL (3.4-5.0) L Albumin/Globulin Ratio 0.7 (1.0-1.7) L Urine Collection Type Unknown Urine Color Yellow Urine Clarity Clear Urine pH 5.5 Urine Specific [place] 1.025 Urine Protein 30 mg/dL (NEG-TRACE) Urine Glucose (UA) Negative mg/dL (NEG) Urine Ketones (Stick) Negative mg/dL (NEG) Urine Blood Negative (NEG) Urine Nitrite Negative (NEG) Urine Bilirubin Negative (NEG) Urine Urobilinogen Dipstick 0.2 mg/dL (0.2 mg/dL) Urine Leukocyte Esterase Small (NEG) Urine RBC 3-5 /HPF (0-2) Urine WBC >40 /HPF (0-4) Urine Squamous Epithelial Cells Many /LPF Urine Bacteria Many /HPF (0-FEW) Urine Hyaline Casts Moderate /HPF Urine Mucus Marked /LPF Laboratory Tests 08/13/19 12:39 Laboratory Tests 08/13/19 12:39 EKG EKG [] Radiology/Procedures Radiology/Procedures PROCEDURE: CT ABD PELV W/ IV CONTRST ONLY CT of the abdomen and pelvis with IV contrast 08/13/2019 INDICATION: Intra-abdominal wound dehiscence. COMPARISON STUDY: CT of the abdomen and pelvis without contrast March 05, 2019. FINDINGS: Cholecystectomy noted. Solid viscera of the abdomen are otherwise grossly similar. Probable hepatic steatosis noted. There is no bowel obstruction. Gas and stool extend to the rectum. The appendix is grossly unremarkable. Hysterectomy noted. Left ovary appears to be present. Right ovary not definitively seen. Some stranding in the pelvis, possibly postoperative is seen. In the anterior abdominal wall there is subcutaneous fat stranding and edema with associated gas collection extending from what appears to be the skin to the anterior aspect of the anterior abdominal wall. Thickening of the anterior abdominal wall is seen. Given history of open wound, gas likely extends from the skin wound to this collection. No organized abscess is not seen. Tiny adjacent fat filled umbilical hernia (sagittal image 48). Gas does not extend into the peritoneum. No acute osseous changes are seen. IMPRESSION: 1. Findings consistent with dehiscence of anterior abdominal wound, with significant surrounding inflammatory change. No organized fluid collection or abscess is seen. 2. Recent hysterectomy[] Course & Med Decision Making Course & Med Decision Making Pertinent Labs and Imaging studies reviewed. (See chart for details) dx: Abnormal wound dehiscence Spoke with Dr. Hernandez who is the admitting physician, and care was assumed following discussion of patient. Patient's vital signs stable. Patient remains afebrile, appears nontoxic, respirations even and unlabored. Patient will be admitted to the med/surg floor. Patient's case and plan of care also discussed with Dr. Salcedo [] Eric Disclaimer Eric Disclaimer This electronic medical record was generated, in whole or in part, using a voice recognition dictation system. Departure Departure Impression: Primary Impression: Abdominal wound dehiscence Disposition: ADMITTED INPATIENT Admitting Physician: JOSEF sanon) Condition: STABLE Referrals: CHRISTINE SARAVIA MD (PCP) Problem Qualifiers Primary Impression: Abdominal wound dehiscence Encounter type: initial encounter Qualified Codes: T81.30XA - Disruption of wound, unspecified, initial encounter SOLANGE CHAMBERLAIN [employer]GER Aug 13, 2019 15:35
[2019-08-13] MEDS ORDERED: VANCOMYCIN PER PHARMACY MC PRN (17:15)
[2019-08-13] MEDS ORDERED: VANCOMYCIN 2 GM in IV NORMAL SALINE 500ML BAG 500 ML IV ONE (17:15)
[2019-08-13] MEDS ORDERED: CLINDAMYCIN 900MG PREMIX 50 ML IV ONE (17:30)
[2019-08-13] MEDS ORDERED: GABAPENTIN 300 MG CAPSULE. PO PRN (18:30)
--- NOTE | 2019-08-13 18:30 | NUR ---
patient to floor with wound from hysterectomy from 07-28-19/ patient denies pain at this time. has iv to lac #20 ns running tko. to have wet to dry wound changes 2x day per Dr Hernandez. to have wound vac applied on friday. wbc 18.3. report called to 4 n for room 412.
[2019-08-13 18:43] VITALS: BP 114/59
[2019-08-13 19:00] VITALS: BP 139/69
[2019-08-13] MEDS: GENTAMICIN PER PHARMACY. MC PRN (19:01)
--- NOTE | 2019-08-13 19:05 | NUR ---
Pharmacy Aminoglycoside Dosing Note S: Consulted to monitor and dose Gentamicin started 08/13/19 O:THO PRINCE is a 49 year old F with Abscess Height: 5 feet, 3 inches Weight: 92.608787 kg [place] Weight: 52.40 Adjusted Weight: 68.24 Dosing Weight:Adjusted Other Antibiotics: CLEOCIN LABS: BUN: 14 SCr:0.9 CrCl: 83 WBC: 18.3 Tmax (past 24 hours): 98.5 A: Based on dosing guidelines P: 1. Begin Gentamicin 5 mg/kg IV q24h ( 400mg ) 2. Follow up random levels on 08/14/19 at 0500 3. Pharmacy will continue to monitor, follow and adjust therapy as needed. NBA HENDRICKS [facility], 08/13/19 [id number]
[2019-08-13] MEDS: GENTAMICIN SULFATE 400 MG in IV DEXTROSE 5% 100ML 100 ML IV SCH (20:18)
[2019-08-13] MEDS: CLINDAMYCIN 900MG PREMIX 50 ML IV SCH (20:19)
[2019-08-13] MEDS: IBUPROFEN 400 MG TABLET. PO PRN (22:16)
[2019-08-13 23:00] VITALS: BP_SYST 133; BP_SYST 137; BP_DIAS 65; BP_DIAS 84
--- NOTE | 2019-08-14 01:39 | NUR ---
Patient to floor. Dressing changed. Photos to be taken at next dressing change.
[2019-08-14 03:15] VITALS: BP 113/61
[2019-08-14] MEDS ORDERED: GENTAMICIN RANDOM LEVEL. MC ONE (05:00)
[2019-08-14] MEDS: CLINDAMYCIN 900MG PREMIX 50 ML IV SCH ×3 (05:36→20:29)
[2019-08-14 07:00] VITALS: BP 116/53
[2019-08-14] MEDS: GENTAMICIN PER PHARMACY. MC PRN (07:22)
--- NOTE | 2019-08-14 07:24 | NUR ---
Pharmacy Aminoglycoside Dosing Note S: Consulted to monitor and dose Gentamicin started 08/13/19 O:THO PRINCE is a 49 year old F with abdominal wound/abscess Height: 5 feet, 3 inches Weight: 91.8 kg [place] Weight: 52.40 Adjusted Weight: 68.16 Dosing Weight:Adjusted Other Antibiotics: CLEOCIN LABS: BUN: 14 SCr:0.9 CrCl: 83 WBC: 18.3 Platelet: Tmax (past 24 hours): 98.5 I/O: 150/- Microbiology: - Last Random Level: 2 on 08/14/19 at 0445 Last dose given 08/13/19 at 2018 A: Based on random level and nomogram P: 1. Continue Gentamicin 5 mg/kg IV q24h 2. Follow up levels to be ordered if needed 3. Pharmacy will continue to monitor, follow and adjust therapy as needed. Irma Mahoney RPH, 08/14/19 [id number]
[2019-08-14] MEDS: IBUPROFEN 400 MG TABLET. PO PRN ×2 (10:03→20:30)
[2019-08-14 11:00] VITALS: BP 116/47
[2019-08-14 15:00] VITALS: BP 113/64
--- NOTE | 2019-08-14 16:04 | PDOC1 ---
History and Physical Date of Admission Date of Admission DATE: 08/14/19 TIME: 15:48 Identification/Chief Complaint Chief Complaint wound drainage Source Source: Chart review, Patient History of Present Illness History of Present Illness 49 y/o presented to ED with c/o drainage from incision site and opening of incision site. No fevers, chills, night sweats or N/V. Past Medical History Cardiovascular: No pertinent hx Pulmonary: No pertinent hx GI: No pertinent hx Heme/Onc: No pertinent hx Hepatobiliary: No pertinent hx Psych: No pertinent hx Past Surgical History Past Surgical History: Hysterectomy Current Problem List Problem List Problems Medical Problems: (1) Abdominal wound dehiscence Status: Acute Current Medications Current Medications Current Medications Iohexol (Omnipaque 300 Mg/ml) 75 ml 1X ONCE IV Last administered on 08/13/19at 14:02; Start 08/13/19 at 14:00; Stop 08/13/19 at 14:01; Status DC Info (CONTRAST GIVEN -- Rx MONITORING) 1 each PRN DAILY PRN MC SEE COMMENTS; Start 08/13/19 at 14:00; Stop 08/15/19 at 13:59 Sodium Chloride 1,000 ml @ 1,000 mls/hr 1X ONCE IV Last administered on 08/13/19at 17:05; Start 08/13/19 at 15:30; Stop 08/13/19 at 16:29; Status DC Vancomycin HCl (Vanco Per Pharmacy) 1 each PRN DAILY PRN MC SEE COMMENTS; Start 08/13/19 at 17:15; Status UNV Vancomycin HCl 2 gm/Sodium Chloride 500 ml @ 250 mls/hr ONCE ONCE IV ; Start 08/13/19 at 17:15; Stop 08/13/19 at 19:14; Status Cancel Clindamycin Phosphate 50 ml @ 100 mls/hr 1X ONCE IV ; Start 08/13/19 at 17:30; Stop 08/13/19 at 17:59; Status DC Gentamicin Sulfate 1 each PRN DAILY PRN MC SEE COMMENTS Last administered on 08/14/19at 07:22; Start 08/13/19 at 18:30 Clindamycin Phosphate 50 ml @ 100 mls/hr Q8HRS IV Last administered on 08/14/19at 15:36; Start 08/13/19 at 22:00 Gabapentin (Neurontin) 600 mg TID PRN PO PAIN; Start 08/13/19 at 18:30; Stop 08/14/19 at 02:23; Status DC Ibuprofen (Motrin) 800 mg PRN Q8HRS PRN PO INFLAMMATION Last administered on 08/14/19at 10:03; Start 08/13/19 at 18:30 Metformin HCl (Glucophage) 500 mg BIDWMEALS PO ; Start 08/16/19 at 08:00; Stop 08/14/19 at 02:23; Status DC Gentamicin Sulfate 400 mg/ Dextrose 110 ml @ 100 mls/hr Q24H IV Last administered on 08/13/19at 20:18; Start 08/13/19 at 20:00 Gentamicin Sulfate 1 each 1X ONCE MC Last administered on 08/14/19at 05:00; Start 08/14/19 at 05:00; Stop 08/14/19 at 05:01; Status DC Lactobacillus Rhamnosus (Culturelle) 1 cap BID PO ; Start 08/14/19 at 21:00 Active Scripts Active Naproxen 500 Mg Tablet 500 Mg PO BID Percocet 5-325 Mg Tablet (Oxycodone/Acetaminophen) 1 Each Tablet 1 Tab PO PRN Q6HRS PRN Reported Protonix (Pantoprazole Sodium) 40 Mg Tablet.dr 40 Mg PO DAILYAC Metoprolol Succinate ( Xl ) (Metoprolol Succinate) 25 Mg Tab.er.24h 1 Tab PO HS Levothyroxine Sodium 100 Mcg Tablet 1 Tab PO DAILY Gabapentin (Gabapentin) 300 Mg Capsule 300 Mg PO TID Metformin Hcl 500 Mg Tablet 500 Mg PO BIDWMEALS Allergies Allergies: Coded Allergies: Penicillins (Verified Allergy, Severe, Swelling, 07/28/19) facial/tongue swelling ROS General: YES: Appetite; No: Chills, Night Sweats, Fatigue, Malaise, Other PSYCHOLOGICAL ROS: YES: Anxiety; No: Behavioral Disorder, Concentration difficultie, Decreased libido, Depression, Disorientation, Hallucinations, Hostility, Irritablity, Memory difficulties, Mood Swings, Obsessive thoughts, Physical abuse, Sexual abuse, Sleep disturbances, Suicidal ideation, Other Eyes: No Blurry vision, No Decreased vision, No Double vision, No Dry eyes, No Excessive tearing, No Eye Pain, No Itchy Eyes, No Loss of vision, No Photophobia, No Scotomata, No Uses contacts, No Uses glasses, No Other HEENT: No: Heacaches, Visual Changes, Hearing change, Nasal congestion, Nasal discharge, Oral lesions, Sinus pain, Sore Throat, Epistaxis, Sneezing, Snoring, Tinnitus, Vertigo, Vocal changes, Other ALLERGY AND IMMUNOLOGY: No: Hives, Insect Bite Sensitivity, Itchy/Watery Eyes, Nasal Congestion, Post Nasal Drip, Seasonal Allergies, Other Hematological and Lymphatic: No: Bleeding Problems, Blood Clots, Blood T ransfusions, Brusing, Night Sweats, Pallor, Swollen Lymph Nodes, Other ENDOCRINE: No: Breast Changes, Galactorrhea, Hair Pattern Changes, Hot Flashes, Malaise/lethargy, Mood Swings, Palpitations, Polydipsia/polyuria, Skin Changes, Temperature Intolerance, Unexpected Weight Changes, Other Breast: No New/Changing Breast Lumps, No Nipple changes, No Nipple discharge, No Other Respiratory: No: Cough, Hemoptysis, Orthopnea, Pleuritic Pain, Shortness of breath, SOB with excertion, Sputum Changes, Stridor, Tachypnea, Wheezing, Other Cardiovascular: No Chest Pain, No Palpitations, No Orthopnea, No Paroxysmal Noc. Dyspnea, No Edema, No Lt Headedness, No Other Physical Exam General: Alert, Oriented X3, Cooperative HEENT: Atraumatic Lungs: Clear to auscultation Heart: S1S2 Breasts: Normal Abdomen: Normal bowel sounds, Soft, Other (Incision opening. Bath removed. Incision site opened to 4 inches vertical and 4 inches deep with tunneling up to 4 inches. Fascia intact. Packed with wet to dry kerlex dressing) Vitals Vitals Vital Signs Date Time Temp Pulse Resp B/P (MAP) Pulse Ox O2 Delivery O2 Flow Rate FiO2 08/14/19 15:00 98.2 71 20 113/64 (80) 97 Room Air 98.2 Labs Labs Laboratory Tests Test 08/13/19 12:39 08/13/19 13:45 08/13/19 16:25 08/13/19 20:26 White Blood Count 18.3 x10^3/uL (4.0-11.0) Red Blood Count 3.33 x10^6/uL (3.50-5.40) Hemoglobin 9.7 g/dL (12.0-15.5) Hematocrit 28.6 % (36.0-47.0) Mean Corpuscular Volume 86 fL (79-100) Mean Corpuscular Hemoglobin 29 pg (25-35) Mean Corpuscular Hemoglobin Concent 34 g/dL (31-37) Red Cell Distribution Width 15.9 % (11.5-14.5) Platelet Count 749 x10^3/uL (140-400) Neutrophils (%) (Auto) 72 % (31-73) Lymphocytes (%) (Auto) 20 % (24-48) Monocytes (%) (Auto) 4 % (0-9) Eosinophils (%) (Auto) 4 % (0-3) Basophils (%) (Auto) 1 % (0-3) Neutrophils # (Auto) 13.2 x10^3/uL (1.8-7.7) Lymphocytes # (Auto) 3.7 x10^3/uL (1.0-4.8) Monocytes # (Auto) 0.7 x10^3/uL (0.0-1.1) Eosinophils # (Auto) 0.7 x10^3/uL (0.0-0.7) Basophils # (Auto) 0.1 x10^3/uL (0.0-0.2) Segmented Neutrophils % 65 % (35-66) Band Neutrophils % 8 % (0-9) Lymphocytes % 18 % (24-48) Atypical Lymphocytes % (Manual) 2 % (0-0) Monocytes % 2 % (0-10) Eosinophils % 3 % (0-5) Myelocytes % 2 % (0-0) Platelet Estimate Increased (ADEQUATE) Large Platelets Few Giant Platelets Occ Polychromasia Slight Anisocytosis Slight Sodium Level 138 mmol/L (136-145) Potassium Level 3.9 mmol/L (3.5-5.1) Chloride Level 102 mmol/L (98-107) Carbon Dioxide Level 25 mmol/L (21-32) Anion Gap 11 (6-14) Blood Urea Nitrogen 14 mg/dL (7-20) Creatinine 0.9 mg/dL (0.6-1.0) Estimated GFR (Cockcroft-Gault) 67.1 BUN/Creatinine Ratio 16 (6-20) Glucose Level 157 mg/dL (70-99) Lactic Acid Level 2.5 mmol/L (0.4-2.0) 1.1 mmol/L (0.4-2.0) Calcium Level 8.5 mg/dL (8.5-10.1) Magnesium Level 1.7 mg/dL (1.8-2.4) Total Bilirubin 0.3 mg/dL (0.2-1.0) Aspartate Amino Transf (AST/SGOT) 10 U/L (15-37) Alanine Aminotransferase (ALT/SGPT) 6 U/L (14-59) Alkaline Phosphatase 85 U/L (46-116) Total Protein 7.1 g/dL (6.4-8.2) Albumin 2.8 g/dL (3.4-5.0) Albumin/Globulin Ratio 0.7 (1.0-1.7) Urine Collection Type Unknown Urine Color Yellow Urine Clarity Clear Urine pH 5.5 Urine Specific [place] 1.025 Urine Protein 30 mg/dL (NEG-TRACE) Urine Glucose (UA) Negative mg/dL (NEG) Urine Ketones (Stick) Negative mg/dL (NEG) Urine Blood Negative (NEG) Urine Nitrite Negative (NEG) Urine Bilirubin Negative (NEG) Urine Urobilinogen Dipstick 0.2 mg/dL (0.2 mg/dL) Urine Leukocyte Esterase Small (NEG) Urine RBC 3-5 /HPF (0-2) Urine WBC >40 /HPF (0-4) Urine Squamous Epithelial Cells Many /LPF Urine Bacteria Many /HPF (0-FEW) Urine Hyaline Casts Moderate /HPF Urine Mucus Marked /LPF Glucose (Fingerstick) 148 mg/dL (70-99) Test 08/14/19 04:45 08/14/19 07:52 08/14/19 11:02 Random Gentamicin Level 2.0 mcg/mL Glucose (Fingerstick) 114 mg/dL (70-99) 115 mg/dL (70-99) Laboratory Tests Test 08/13/19 16:25 08/13/19 20:26 08/14/19 04:45 08/14/19 07:52 Lactic Acid Level 1.1 mmol/L (0.4-2.0) Glucose (Fingerstick) 148 mg/dL (70-99) 114 mg/dL (70-99) Random Gentamicin Level 2.0 mcg/mL Test 08/14/19 11:02 Glucose (Fingerstick) 115 mg/dL (70-99) VTE Prophylaxis Ordered VTE Prophylaxis Devices: Yes VTE Pharmacological Prophylaxi: No Assessment/Plan Assessment/Plan A: Wound Dehiscence P: Wet to dry dressing packing BID. Wound care consult. Wound care will place wound vac on Friday. AFSHIN GEORGE Jr, MD Aug 14, 2019 16:04
[2019-08-14 19:00] VITALS: BP 123/47
[2019-08-14] MEDS: GENTAMICIN SULFATE 400 MG in IV DEXTROSE 5% 100ML 100 ML IV SCH (20:29)
[2019-08-14] MEDS: GABAPENTIN 300 MG CAPSULE. PO SCH (20:30)
[2019-08-14] MEDS: LACTOBACILLUS RHAMNOSUS GG 1 CAPSULE. PO SCH (20:30)
[2019-08-14] MEDS: METOPROLOL SUCC 24HR ER 25 MG TAB.ER.24H. PO SCH (20:31)
[2019-08-14 23:00] VITALS: BP 123/69
[2019-08-15 03:00] VITALS: BP 120/68
[2019-08-15 05:15] LABS: BASO # 0.1 x10^3/uL (0.0-0.2); BASO % 0 % (0-3); EOS # 0.7 x10^3/uL (0.0-0.7); EOS % 4 % (0-3); HEMATOCRIT 27.4 % (36.0-47.0); LYMPH # 3.6 x10^3/uL (1.0-4.8); LYMPH % 22 % (24-48); MEAN CORPUSCULAR HEMOGLOBIN 28 pg (25-35); MEAN CORPUSCULAR HGB CONC 33 g/dL (31-37); MEAN CORPUSCULAR VOLUME 86 fL (79-100); MONO % 6 % (0-9); NEUT # 11.6 x10^3/uL (1.8-7.7); NEUT % 68 % (31-73); PLATELET COUNT 692 x10^3/uL (140-400); RED BLOOD COUNT 3.17 x10^6/uL (3.50-5.40); RED CELL DISTRIBUTION WIDTH 16.2 % (11.5-14.5)
[2019-08-15] MEDS ORDERED: LEVOTHYROXINE 100 MCG TABLET ONE (05:28)
[2019-08-15] MEDS: LEVOTHYROXINE 100 MCG TABLET PO SCH (05:30)
[2019-08-15] MEDS: CLINDAMYCIN 900MG PREMIX 50 ML IV SCH ×3 (05:31→22:32)
[2019-08-15] MEDS: PANTOPRAZOLE 40 MG TABLET.DR. PO SCH (05:32)
[2019-08-15] MEDS ORDERED: PANTOPRAZOLE 40 MG TABLET.DR. PO ONE (05:32)
[2019-08-15 05:45] LABS: CALCIUM 8.1 mg/dL (8.5-10.1); CREATININE 0.9 mg/dL (0.6-1.0); GFR 67.1; POTASSIUM 4.4 mmol/L (3.5-5.1)
[2019-08-15 08:59] VITALS: BP 121/62
--- NOTE | 2019-08-15 09:06 | PDOC ---
SURGICAL PROGRESS NOTE Subjective Pt. feeling well. No fever, chills or night sweats. Her pain is well controlled. Wound was changed by nursing staff this am. Will plan for wound change this evening as well. Vital Signs Vital Signs Date Time Temp Pulse Resp B/P (MAP) Pulse Ox O2 Delivery O2 Flow Rate FiO2 08/15/19 03:00 97.7 63 18 120/68 (85) 98 Room Air 97.7 I&O Intake and Output 08/15/19 07:00 Intake Total 800 ml Balance 800 ml Intake Oral 800 ml # Voids 7 PATIENT HAS A RAY: No General: Alert, Oriented X3, Cooperative HEENT: Atraumatic Lungs: Clear to auscultation Heart: Regular rate Abdomen: Normal bowel sounds, Soft, No tenderness, No masses, Other (4 inches x 4 inches with tunneling. Granulation tissue appearing.) Psych/Mental Status: Mental status NL Labs Laboratory Tests Test 08/13/19 12:39 08/13/19 13:45 08/13/19 16:25 08/13/19 20:26 White Blood Count 18.3 x10^3/uL (4.0-11.0) Red Blood Count 3.33 x10^6/uL (3.50-5.40) Hemoglobin 9.7 g/dL (12.0-15.5) Hematocrit 28.6 % (36.0-47.0) Mean Corpuscular Volume 86 fL (79-100) Mean Corpuscular Hemoglobin 29 pg (25-35) Mean Corpuscular Hemoglobin Concent 34 g/dL (31-37) Red Cell Distribution Width 15.9 % (11.5-14.5) Platelet Count 749 x10^3/uL (140-400) Neutrophils (%) (Auto) 72 % (31-73) Lymphocytes (%) (Auto) 20 % (24-48) Monocytes (%) (Auto) 4 % (0-9) Eosinophils (%) (Auto) 4 % (0-3) Basophils (%) (Auto) 1 % (0-3) Neutrophils # (Auto) 13.2 x10^3/uL (1.8-7.7) Lymphocytes # (Auto) 3.7 x10^3/uL (1.0-4.8) Monocytes # (Auto) 0.7 x10^3/uL (0.0-1.1) Eosinophils # (Auto) 0.7 x10^3/uL (0.0-0.7) Basophils # (Auto) 0.1 x10^3/uL (0.0-0.2) Segmented Neutrophils % 65 % (35-66) Band Neutrophils % 8 % (0-9) Lymphocytes % 18 % (24-48) Atypical Lymphocytes % (Manual) 2 % (0-0) Monocytes % 2 % (0-10) Eosinophils % 3 % (0-5) Myelocytes % 2 % (0-0) Platelet Estimate Increased (ADEQUATE) Large Platelets Few Giant Platelets Occ Polychromasia Slight Anisocytosis Slight Sodium Level 138 mmol/L (136-145) Potassium Level 3.9 mmol/L (3.5-5.1) Chloride Level 102 mmol/L (98-107) Carbon Dioxide Level 25 mmol/L (21-32) Anion Gap 11 (6-14) Blood Urea Nitrogen 14 mg/dL (7-20) Creatinine 0.9 mg/dL (0.6-1.0) Estimated GFR (Cockcroft-Gault) 67.1 BUN/Creatinine Ratio 16 (6-20) Glucose Level 157 mg/dL (70-99) Lactic Acid Level 2.5 mmol/L (0.4-2.0) 1.1 mmol/L (0.4-2.0) Calcium Level 8.5 mg/dL (8.5-10.1) Magnesium Level 1.7 mg/dL (1.8-2.4) Total Bilirubin 0.3 mg/dL (0.2-1.0) Aspartate Amino Transf (AST/SGOT) 10 U/L (15-37) Alanine Aminotransferase (ALT/SGPT) 6 U/L (14-59) Alkaline Phosphatase 85 U/L (46-116) Total Protein 7.1 g/dL (6.4-8.2) Albumin 2.8 g/dL (3.4-5.0) Albumin/Globulin Ratio 0.7 (1.0-1.7) Urine Collection Type Unknown Urine Color Yellow Urine Clarity Clear Urine pH 5.5 Urine Specific [place] 1.025 Urine Protein 30 mg/dL (NEG-TRACE) Urine Glucose (UA) Negative mg/dL (NEG) Urine Ketones (Stick) Negative mg/dL (NEG) Urine Blood Negative (NEG) Urine Nitrite Negative (NEG) Urine Bilirubin Negative (NEG) Urine Urobilinogen Dipstick 0.2 mg/dL (0.2 mg/dL) Urine Leukocyte Esterase Small (NEG) Urine RBC 3-5 /HPF (0-2) Urine WBC >40 /HPF (0-4) Urine Squamous Epithelial Cells Many /LPF Urine Bacteria Many /HPF (0-FEW) Urine Hyaline Casts Moderate /HPF Urine Mucus Marked /LPF Glucose (Fingerstick) 148 mg/dL (70-99) Test 08/14/19 04:45 08/14/19 07:52 08/14/19 11:02 08/14/19 16:29 Random Gentamicin Level 2.0 mcg/mL Glucose (Fingerstick) 114 mg/dL (70-99) 115 mg/dL (70-99) 108 mg/dL (70-99) Test 08/14/19 20:13 08/15/19 04:40 Glucose (Fingerstick) 155 mg/dL (70-99) White Blood Count 17.0 x10^3/uL (4.0-11.0) Red Blood Count 3.17 x10^6/uL (3.50-5.40) Hemoglobin 9.0 g/dL (12.0-15.5) Hematocrit 27.4 % (36.0-47.0) Mean Corpuscular Volume 86 fL (79-100) Mean Corpuscular Hemoglobin 28 pg (25-35) Mean Corpuscular Hemoglobin Concent 33 g/dL (31-37) Red Cell Distribution Width 16.2 % (11.5-14.5) Platelet Count 692 x10^3/uL (140-400) Neutrophils (%) (Auto) 68 % (31-73) Lymphocytes (%) (Auto) 22 % (24-48) Monocytes (%) (Auto) 6 % (0-9) Eosinophils (%) (Auto) 4 % (0-3) Basophils (%) (Auto) 0 % (0-3) Neutrophils # (Auto) 11.6 x10^3/uL (1.8-7.7) Lymphocytes # (Auto) 3.6 x10^3/uL (1.0-4.8) Monocytes # (Auto) 1.0 x10^3/uL (0.0-1.1) Eosinophils # (Auto) 0.7 x10^3/uL (0.0-0.7) Basophils # (Auto) 0.1 x10^3/uL (0.0-0.2) Sodium Level 140 mmol/L (136-145) Potassium Level 4.4 mmol/L (3.5-5.1) Chloride Level 103 mmol/L (98-107) Carbon Dioxide Level 28 mmol/L (21-32) Anion Gap 9 (6-14) Blood Urea Nitrogen 15 mg/dL (7-20) Creatinine 0.9 mg/dL (0.6-1.0) Estimated GFR (Cockcroft-Gault) 67.1 Glucose Level 119 mg/dL (70-99) Calcium Level 8.1 mg/dL (8.5-10.1) Laboratory Tests Test 08/14/19 11:02 08/14/19 16:29 08/14/19 20:13 08/15/19 04:40 Glucose (Fingerstick) 115 mg/dL (70-99) 108 mg/dL (70-99) 155 mg/dL (70-99) White Blood Count 17.0 x10^3/uL (4.0-11.0) Red Blood Count 3.17 x10^6/uL (3.50-5.40) Hemoglobin 9.0 g/dL (12.0-15.5) Hematocrit 27.4 % (36.0-47.0) Mean Corpuscular Volume 86 fL (79-100) Mean Corpuscular Hemoglobin 28 pg (25-35) Mean Corpuscular Hemoglobin Concent 33 g/dL (31-37) Red Cell Distribution Width 16.2 % (11.5-14.5) Platelet Count 692 x10^3/uL (140-400) Neutrophils (%) (Auto) 68 % (31-73) Lymphocytes (%) (Auto) 22 % (24-48) Monocytes (%) (Auto) 6 % (0-9) Eosinophils (%) (Auto) 4 % (0-3) Basophils (%) (Auto) 0 % (0-3) Neutrophils # (Auto) 11.6 x10^3/uL (1.8-7.7) Lymphocytes # (Auto) 3.6 x10^3/uL (1.0-4.8) Monocytes # (Auto) 1.0 x10^3/uL (0.0-1.1) Eosinophils # (Auto) 0.7 x10^3/uL (0.0-0.7) Basophils # (Auto) 0.1 x10^3/uL (0.0-0.2) Sodium Level 140 mmol/L (136-145) Potassium Level 4.4 mmol/L (3.5-5.1) Chloride Level 103 mmol/L (98-107) Carbon Dioxide Level 28 mmol/L (21-32) Anion Gap 9 (6-14) Blood Urea Nitrogen 15 mg/dL (7-20) Creatinine 0.9 mg/dL (0.6-1.0) Estimated GFR (Cockcroft-Gault) 67.1 Glucose Level 119 mg/dL (70-99) Calcium Level 8.1 mg/dL (8.5-10.1) Problem List Problems Medical Problems: (1) Abdominal wound dehiscence Status: Acute Assessment/Plan A: Wound Dehiscence P: Continue IV abx and wound care. Recheck CBC in am. AFSHIN GEORGE Jr, MD Aug 15, 2019 09:06
[2019-08-15 11:59] VITALS: BP 127/66
[2019-08-15] MEDS: LACTOBACILLUS RHAMNOSUS GG 1 CAPSULE. PO SCH ×2 (11:59→21:13)
[2019-08-15] MEDS: IBUPROFEN 400 MG TABLET. PO PRN ×2 (12:00→21:12)
[2019-08-15] MEDS: GABAPENTIN 300 MG CAPSULE. PO SCH ×3 (12:00→21:13)
[2019-08-15 15:59] VITALS: BP 128/71
[2019-08-15] MEDS: metFORMIN 500 MG TABLET PO SCH (16:39)
[2019-08-15 19:00] VITALS: BP 120/67
[2019-08-15] MEDS: GENTAMICIN SULFATE 400 MG in IV DEXTROSE 5% 100ML 100 ML IV SCH (21:12)
[2019-08-15] MEDS: METOPROLOL SUCC 24HR ER 25 MG TAB.ER.24H. PO SCH (21:13)
[2019-08-15 23:00] VITALS: BP 117/46
[2019-08-16 03:00] VITALS: BP 115/49
[2019-08-16] MEDS: CLINDAMYCIN 900MG PREMIX 50 ML IV SCH ×3 (05:43→23:38)
[2019-08-16] MEDS: LEVOTHYROXINE 100 MCG TABLET PO SCH (05:43)
[2019-08-16 07:00] VITALS: BP 112/63
[2019-08-16 07:10] LABS: BASO # 0.1 x10^3/uL (0.0-0.2); BASO % 0 % (0-3); EOS # 0.7 x10^3/uL (0.0-0.7); EOS % 5 % (0-3); HEMATOCRIT 28.4 % (36.0-47.0); HEMOGLOBIN 9.5 g/dL (12.0-15.5); LYMPH # 3.4 x10^3/uL (1.0-4.8); LYMPH % 24 % (24-48); MEAN CORPUSCULAR HEMOGLOBIN 29 pg (25-35); MEAN CORPUSCULAR HGB CONC 33 g/dL (31-37); MEAN CORPUSCULAR VOLUME 86 fL (79-100); MONO # 0.8 x10^3/uL (0.0-1.1); MONO % 6 % (0-9); NEUT # 9.5 x10^3/uL (1.8-7.7); NEUT % 66 % (31-73); PLATELET COUNT 715 x10^3/uL (140-400); RED CELL DISTRIBUTION WIDTH 16.9 % (11.5-14.5); WHITE BLOOD COUNT 14.5 x10^3/uL (4.0-11.0)
[2019-08-16] MEDS ORDERED: metFORMIN 500 MG TABLET PO SCH (08:00)
[2019-08-16] MEDS: PANTOPRAZOLE 40 MG TABLET.DR. PO SCH (08:28)
[2019-08-16] MEDS: LACTOBACILLUS RHAMNOSUS GG 1 CAPSULE. PO SCH ×2 (08:29→20:49)
[2019-08-16] MEDS: GABAPENTIN 300 MG CAPSULE. PO SCH ×3 (08:29→20:49)
[2019-08-16] MEDS: metFORMIN 500 MG TABLET PO SCH ×2 (08:29→15:59)
[2019-08-16] MEDS: MULTIVITAMIN with MINERAL TABLET. PO SCH (10:26)
[2019-08-16] MEDS: ASCORBIC ACID 500 MG TABLET PO SCH ×2 (10:26→20:49)
[2019-08-16 11:00] VITALS: BP 116/59
[2019-08-16] MEDS: IBUPROFEN 400 MG TABLET. PO PRN (12:31)
[2019-08-16] MEDS: GENTAMICIN PER PHARMACY. MC PRN ×2 (13:39→15:18)
[2019-08-16 14:20] LABS: CREATININE 0.8 mg/dL (0.6-1.0); GFR 76.9
[2019-08-16 15:00] VITALS: BP 122/64
--- NOTE | 2019-08-16 16:19 | NUR ---
SW following for discharge planning. Chart reviewed, discussed with RN, pt is from home with family. Pt needing a home wound vac before being able to discharge home. Possible abx. SW will continue to follow for discharge planning needs.
--- NOTE | 2019-08-16 17:51 | PDOC ---
SURGICAL PROGRESS NOTE Subjective Pt. feeling well. Wound vac in place. Awaiting home unit for discharge. Vital Signs Vital Signs Date Time Temp Pulse Resp B/P (MAP) Pulse Ox O2 Delivery O2 Flow Rate FiO2 08/16/19 15:00 98.1 65 18 122/64 (83) 97 Room Air 98.1 I&O Intake and Output 08/16/19 07:00 Intake Total 360 ml Balance 360 ml Intake Oral 200 ml IV Total 160 ml # Voids 5 PATIENT HAS A RAY: No General: Alert, Oriented X3, Cooperative HEENT: Atraumatic Lungs: Clear to auscultation Heart: Regular rate Abdomen: Normal bowel sounds, Soft, No tenderness, No masses, Other (wound vac in place and working properly) Psych/Mental Status: Mental status NL Labs Laboratory Tests Test 08/14/19 20:13 08/15/19 04:40 08/15/19 11:51 08/15/19 16:48 Glucose (Fingerstick) 155 mg/dL (70-99) 93 mg/dL (70-99) 124 mg/dL (70-99) White Blood Count 17.0 x10^3/uL (4.0-11.0) Red Blood Count 3.17 x10^6/uL (3.50-5.40) Hemoglobin 9.0 g/dL (12.0-15.5) Hematocrit 27.4 % (36.0-47.0) Mean Corpuscular Volume 86 fL (79-100) Mean Corpuscular Hemoglobin 28 pg (25-35) Mean Corpuscular Hemoglobin Concent 33 g/dL (31-37) Red Cell Distribution Width 16.2 % (11.5-14.5) Platelet Count 692 x10^3/uL (140-400) Neutrophils (%) (Auto) 68 % (31-73) Lymphocytes (%) (Auto) 22 % (24-48) Monocytes (%) (Auto) 6 % (0-9) Eosinophils (%) (Auto) 4 % (0-3) Basophils (%) (Auto) 0 % (0-3) Neutrophils # (Auto) 11.6 x10^3/uL (1.8-7.7) Lymphocytes # (Auto) 3.6 x10^3/uL (1.0-4.8) Monocytes # (Auto) 1.0 x10^3/uL (0.0-1.1) Eosinophils # (Auto) 0.7 x10^3/uL (0.0-0.7) Basophils # (Auto) 0.1 x10^3/uL (0.0-0.2) Sodium Level 140 mmol/L (136-145) Potassium Level 4.4 mmol/L (3.5-5.1) Chloride Level 103 mmol/L (98-107) Carbon Dioxide Level 28 mmol/L (21-32) Anion Gap 9 (6-14) Blood Urea Nitrogen 15 mg/dL (7-20) Creatinine 0.9 mg/dL (0.6-1.0) Estimated GFR (Cockcroft-Gault) 67.1 Glucose Level 119 mg/dL (70-99) Calcium Level 8.1 mg/dL (8.5-10.1) Test 08/15/19 20:41 08/16/19 05:30 08/16/19 07:45 08/16/19 11:09 Glucose (Fingerstick) 83 mg/dL (70-99) 103 mg/dL (70-99) 81 mg/dL (70-99) White Blood Count 14.5 x10^3/uL (4.0-11.0) Red Blood Count 3.30 x10^6/uL (3.50-5.40) Hemoglobin 9.5 g/dL (12.0-15.5) Hematocrit 28.4 % (36.0-47.0) Mean Corpuscular Volume 86 fL (79-100) Mean Corpuscular Hemoglobin 29 pg (25-35) Mean Corpuscular Hemoglobin Concent 33 g/dL (31-37) Red Cell Distribution Width 16.9 % (11.5-14.5) Platelet Count 715 x10^3/uL (140-400) Neutrophils (%) (Auto) 66 % (31-73) Lymphocytes (%) (Auto) 24 % (24-48) Monocytes (%) (Auto) 6 % (0-9) Eosinophils (%) (Auto) 5 % (0-3) Basophils (%) (Auto) 0 % (0-3) Neutrophils # (Auto) 9.5 x10^3/uL (1.8-7.7) Lymphocytes # (Auto) 3.4 x10^3/uL (1.0-4.8) Monocytes # (Auto) 0.8 x10^3/uL (0.0-1.1) Eosinophils # (Auto) 0.7 x10^3/uL (0.0-0.7) Basophils # (Auto) 0.1 x10^3/uL (0.0-0.2) Creatinine 0.8 mg/dL (0.6-1.0) Estimated GFR (Cockcroft-Gault) 76.9 Test 08/16/19 16:42 Glucose (Fingerstick) 103 mg/dL (70-99) Laboratory Tests Test 08/15/19 20:41 08/16/19 05:30 08/16/19 07:45 08/16/19 11:09 Glucose (Fingerstick) 83 mg/dL (70-99) 103 mg/dL (70-99) 81 mg/dL (70-99) White Blood Count 14.5 x10^3/uL (4.0-11.0) Red Blood Count 3.30 x10^6/uL (3.50-5.40) Hemoglobin 9.5 g/dL (12.0-15.5) Hematocrit 28.4 % (36.0-47.0) Mean Corpuscular Volume 86 fL (79-100) Mean Corpuscular Hemoglobin 29 pg (25-35) Mean Corpuscular Hemoglobin Concent 33 g/dL (31-37) Red Cell Distribution Width 16.9 % (11.5-14.5) Platelet Count 715 x10^3/uL (140-400) Neutrophils (%) (Auto) 66 % (31-73) Lymphocytes (%) (Auto) 24 % (24-48) Monocytes (%) (Auto) 6 % (0-9) Eosinophils (%) (Auto) 5 % (0-3) Basophils (%) (Auto) 0 % (0-3) Neutrophils # (Auto) 9.5 x10^3/uL (1.8-7.7) Lymphocytes # (Auto) 3.4 x10^3/uL (1.0-4.8) Monocytes # (Auto) 0.8 x10^3/uL (0.0-1.1) Eosinophils # (Auto) 0.7 x10^3/uL (0.0-0.7) Basophils # (Auto) 0.1 x10^3/uL (0.0-0.2) Creatinine 0.8 mg/dL (0.6-1.0) Estimated GFR (Cockcroft-Gault) 76.9 Test 08/16/19 16:42 Glucose (Fingerstick) 103 mg/dL (70-99) Problem List Problems Medical Problems: (1) Abdominal wound dehiscence Status: Acute Assessment/Plan A: Hosptial D#3 for Wound dehiscence P: Continue current care. Anticipate d/c home tomorrow with wound vac. AFSHIN GEORGE Jr, MD Aug 16, 2019 17:51
[2019-08-16 19:42] VITALS: BP 115/64
[2019-08-16] MEDS: GENTAMICIN SULFATE 400 MG in IV DEXTROSE 5% 100ML 100 ML IV SCH (20:49)
[2019-08-16] MEDS: METOPROLOL SUCC 24HR ER 25 MG TAB.ER.24H. PO SCH (20:49)
[2019-08-16 23:13] VITALS: BP 115/62
[2019-08-17 03:35] VITALS: BP 111/60
[2019-08-17] MEDS: CLINDAMYCIN 900MG PREMIX 50 ML IV SCH ×2 (05:58→12:29)
[2019-08-17] MEDS: PANTOPRAZOLE 40 MG TABLET.DR. PO SCH (05:58)
[2019-08-17] MEDS: LEVOTHYROXINE 100 MCG TABLET PO SCH (05:59)
[2019-08-17 07:00] VITALS: BP 112/53
[2019-08-17 07:39] LABS: CREATININE 0.8 mg/dL (0.6-1.0); GFR 76.9
[2019-08-17] MEDS: IBUPROFEN 400 MG TABLET. PO PRN (08:18)
[2019-08-17] MEDS: LACTOBACILLUS RHAMNOSUS GG 1 CAPSULE. PO SCH (08:18)
[2019-08-17] MEDS: metFORMIN 500 MG TABLET PO SCH (08:18)
[2019-08-17] MEDS: ASCORBIC ACID 500 MG TABLET PO SCH (08:18)
[2019-08-17] MEDS: GABAPENTIN 300 MG CAPSULE. PO SCH ×2 (08:18→12:28)
[2019-08-17] MEDS: MULTIVITAMIN with MINERAL TABLET. PO SCH (08:19)
[2019-08-17 11:00] VITALS: BP 119/48
--- NOTE | 2019-08-17 13:29 | NUR ---
SS following up with discharge planning. SS met with pt to discuss home healthcare and discharge planning. Pt agreeable to home healthcare RN at discharge. Pt currently awaiting wound vac for home. Referral phoned and faxed to [facility], ; fax [phone]. SS will continue to follow for discharge planning.
--- NOTE | 2019-08-17 13:30 | PDOC ---
SURGICAL PROGRESS NOTE Subjective Pt. feeling well. No complaints. Vital Signs Vital Signs Date Time Temp Pulse Resp B/P (MAP) Pulse Ox O2 Delivery O2 Flow Rate FiO2 08/17/19 11:00 98.0 67 16 119/48 (71) 95 Room Air 98.0 I&O Intake and Output 08/17/19 07:00 Intake Total 300 ml Output Total 0 ml Balance 300 ml Intake Oral 300 ml Output Urine Total 0 ml # Voids 1 PATIENT HAS A RAY: No General: Alert, Oriented X3, Cooperative HEENT: Atraumatic Lungs: Clear to auscultation Heart: Regular rate Abdomen: Normal bowel sounds, Soft, No tenderness, No masses, Other (wound vac in place) Psych/Mental Status: Mental status NL Labs Laboratory Tests Test 08/15/19 16:48 08/15/19 20:41 08/16/19 05:30 08/16/19 07:45 Glucose (Fingerstick) 124 mg/dL (70-99) 83 mg/dL (70-99) 103 mg/dL (70-99) White Blood Count 14.5 x10^3/uL (4.0-11.0) Red Blood Count 3.30 x10^6/uL (3.50-5.40) Hemoglobin 9.5 g/dL (12.0-15.5) Hematocrit 28.4 % (36.0-47.0) Mean Corpuscular Volume 86 fL (79-100) Mean Corpuscular Hemoglobin 29 pg (25-35) Mean Corpuscular Hemoglobin Concent 33 g/dL (31-37) Red Cell Distribution Width 16.9 % (11.5-14.5) Platelet Count 715 x10^3/uL (140-400) Neutrophils (%) (Auto) 66 % (31-73) Lymphocytes (%) (Auto) 24 % (24-48) Monocytes (%) (Auto) 6 % (0-9) Eosinophils (%) (Auto) 5 % (0-3) Basophils (%) (Auto) 0 % (0-3) Neutrophils # (Auto) 9.5 x10^3/uL (1.8-7.7) Lymphocytes # (Auto) 3.4 x10^3/uL (1.0-4.8) Monocytes # (Auto) 0.8 x10^3/uL (0.0-1.1) Eosinophils # (Auto) 0.7 x10^3/uL (0.0-0.7) Basophils # (Auto) 0.1 x10^3/uL (0.0-0.2) Creatinine 0.8 mg/dL (0.6-1.0) Estimated GFR (Cockcroft-Gault) 76.9 Test 08/16/19 11:09 08/16/19 16:42 08/16/19 20:36 08/17/19 05:30 Glucose (Fingerstick) 81 mg/dL (70-99) 103 mg/dL (70-99) 120 mg/dL (70-99) Creatinine 0.8 mg/dL (0.6-1.0) Estimated GFR (Cockcroft-Gault) 76.9 Test 08/17/19 07:36 08/17/19 11:20 Glucose (Fingerstick) 95 mg/dL (70-99) 83 mg/dL (70-99) Laboratory Tests Test 08/16/19 16:42 08/16/19 20:36 08/17/19 05:30 08/17/19 07:36 Glucose (Fingerstick) 103 mg/dL (70-99) 120 mg/dL (70-99) 95 mg/dL (70-99) Creatinine 0.8 mg/dL (0.6-1.0) Estimated GFR (Cockcroft-Gault) 76.9 Test 08/17/19 11:20 Glucose (Fingerstick) 83 mg/dL (70-99) Problem List Problems Medical Problems: (1) Abdominal wound dehiscence Status: Acute Assessment/Plan A: Wound Dehiscence WOund vac in place P: D/c home with home health and wound vac care. F/u Dr. Kilpatrick in 1 week. AFSHIN GEORGE Jr, MD Aug 17, 2019 13:30
--- NOTE | 2019-08-17 13:32 | DISCH ---
DISCHARGE INSTRUCTIONS Condition on Discharge Condition on Discharge: Stable Activity After Discharge Activity Instructions for Disc: Activity as tolerated, Avoid exertion Bathing Instructions: Shower-keep dressing dry, No Tub Bath until see Lifting Instructions after Dis: No heavy lifting, No pulling or pushing, Do not lift >10 pounds Driving Instructions after Dis: No driving for 2 weeks Weight Bearing Status after Di: Full weight bearing Diet after Discharge Diet after Discharge: Diabetic No Calorie Level Diet Texture: Regular Swallowing Supervision: None needed Wound Incision Care Wound/Incision Care: Ice to area for comfort, Keep wound/cast CDI Contacting the [facility] after DC Call your doctor for: Concerns you may have Follow-Up Follow up with: Dr. Kilpatrick in 1 week. Treatment/Equipment after DC Adaptive Equipment Issued: None AFSHIN GEORGE Jr, MD Aug 17, 2019 13:32
--- NOTE | 2019-08-17 13:41 | NUR ---
SS following up with discharge planning. Discharge orders received. Discharge orders faxed to [facility], ; fax [phone]. Pt's RN notified.
--- NOTE | 2019-08-17 15:29 | NUR ---
Discharge Note: [place] Discharge instructions and discharge home medications reviewed with Patient and a copy given. All questions have been answered and understanding verbalized. The following instructions and handouts were given: information about wound dehiscence, follow up appointments, wound care, home health, etc. Discontinued lines and drains: IV line in left hand removed, catheter tip intact. Patient discharged to home with home health with , wheelchair used for mobility to discharge vehicle.
== END 2019-08-17 15:30 | disposition home health service (06) | DRG 921 ==
LOC: ER 11:46 → 4 NORTH 15:25
PROVIDERS: ADMIT Obstetrics & Gynecology; ATTEND Obstetrics & Gynecology
DX: T81.30XA Disruption of wound, unspecified, initial encounter (principal); E11.9 Type 2 diabetes mellitus without complications; E03.9 Hypothyroidism, unspecified; Z87.442 Personal history of urinary calculi; Z90.710 Acquired absence of both cervix and uterus; Z90.49 Acquired absence of other specified parts of digestive tract; I10 Essential (primary) hypertension; Z88.0 Allergy status to penicillin; Y83.8 Other surgical procedures as the cause of abnormal reaction of the patient, or of later complication, without mention of misadventure at the time of the procedure; Y92.89 Other specified places as the place of occurrence of the external cause
CPT/HCPCS: 36415; 74177; 80048; 80053; 80170; 81001; 82565; 82962; 83605; 83735; 85007; 85025; 87040; 87071; 87075; 87086; J1580; J3490; J7030; Q9967; 99285-25; G0378

== ENCOUNTER → 2019-09-20 | Outpatient (CLI) | payer OTHER ==
[~2019-09-20] MED LIST changes: +CONTRAST GIVEN. MC PRN; +IOHEXOL 240 MG/ML 50ML VIAL. PO ONE; +IOHEXOL 300 MG/ML 100ML VIAL. IV ONE
[2019-09-20 08:39] LABS: CREATININE 0.8 mg/dL (0.6-1.0); GFR 76.9
--- NOTE | 2019-09-20 10:49 | RAD ---
EXAM: CT ABDOMEN/PELVIS WITH CONTRAST. HISTORY: Nonhealing abdominal wound. TECHNIQUE: Computed tomography of the abdomen and pelvis was performed after the intravenous administration of Isovue-370. COMPARISON: 08/13/2019. FINDINGS: Lung windows through the visualized portions of the bases reveal no abnormality. Bone windows reveal no suspicious lesions. Skin jeffery have been removed along the lower anterior abdominal wall incision. It appears healed along its superior portion. Along the lower aspect of the pancreas, the defect is now open and packed. A tract extends from the surface wound to the superficial surface of the deep fascia inferior to the umbilicus as seen on axial image 75. This focus contains a small amount of gas but no drainable collection. More superiorly, the previous gas containing collection is now seen as only granulation tissue without residual gas or fluid collection. There is diastases of the rectus muscles along the anterior aspect of the wound, but no full-thickness hernia. At this site. There is a tiny hernia just to the right of midline on image 63 measuring 6 mm wide, containing only fat. There are no adjacent bowel loops to suggest a fistula. The uterus is surgically absent. The ovaries remain. The left contains a dominant follicle measuring 2.4 cm. There is no small bowel obstruction. Hypoattenuation of the hepatic parenchyma is consistent with at least mild diffuse hepatic steatosis. The spleen, adrenal glands, pancreas and kidneys are unremarkable. There are no pathologically enlarged lymph nodes. The gallbladder is surgically absent. IMPRESSION: 1. Partial healing of the anterior abdominal wound. The lower portion remains open and packed. The previously open superior portion no longer contains gas and is consistent with granulation tissue. There is no drainable collection or clear fistula. 2. Diastases of the rectus muscles along the inferior aspect of the wound without a discrete hernia. One tiny full-thickness hernia is seen just to the right of midline on the superior aspect of the wound and measures only 6 mm. 4. Diffuse hepatic steatosis. *One or more of the following individualized dose reduction techniques were utilized for this examination: 1. Automated exposure control. 2. Adjustment of the mA and/or kV according to patient size. 3. Use of iterative reconstruction technique. Electronically signed by: Mireya Aparicio MD (09/20/2019 10:46 AM) [facility]
== END | disposition home or self-care (01) ==
LOC: CT 07:55
PROVIDERS: ATTEND Preventive Medicine Undersea and Hyperbaric Medicine
DX: T81.31XA Disruption of external operation (surgical) wound, not elsewhere classified, initial encounter (principal); K46.9 Unspecified abdominal hernia without obstruction or gangrene; K76.0 Fatty (change of) liver, not elsewhere classified; M62.08 Separation of muscle (nontraumatic), other site; Z90.710 Acquired absence of both cervix and uterus; X58.XXXA Exposure to other specified factors, initial encounter; Y93.89 Activity, other specified; Y92.89 Other specified places as the place of occurrence of the external cause; Y99.8 Other external cause status
CPT/HCPCS: 36415; 74177; 82565; Q9966; Q9967

== ENCOUNTER 2020-11-24 17:26 | Inpatient (IN) | payer OTHER ==
[~2020-11-24] VITALS: Ht 157.5 cm; Wt 94.8 kg
[~2020-11-24 17:26] MED LIST changes: -CONTRAST GIVEN. MC PRN; -IOHEXOL 240 MG/ML 50ML VIAL. PO ONE; -IOHEXOL 300 MG/ML 100ML VIAL. IV ONE; -LISI-334 PO; +LISI20TA18 PO
[2020-11-24] MEDS ORDERED: fentaNYL PF VIAL 100 MCG/2 ML VIAL IV ONE (18:30)
[2020-11-24] MEDS ORDERED: ONDANSETRON PF 4 MG/2 ML VIAL. IV ONE (18:30)
[2020-11-24] MEDS ORDERED: IV NORMAL SALINE 1000ML BAG 1,000 ML IV ONE (18:30)
[2020-11-24] MEDS ORDERED: FAMOTIDINE 20 MG/2 ML VIAL IVP ONE (18:30)
[2020-11-24 18:36] LABS: BASO # 0.1 x10^3/uL (0.0-0.2); BASO % 0 % (0-3); CREATININE 0.8 mg/dL (0.6-1.0); EOS # 0.2 x10^3/uL (0.0-0.7); EOS % 1 % (0-3); GFR 76.6; HEMATOCRIT 43.1 % (36.0-47.0); HEMOGLOBIN 14.6 g/dL (12.0-15.5); LYMPH # 3.5 x10^3/uL (1.0-4.8); LYMPH % 16 % (24-48); MEAN CORPUSCULAR HEMOGLOBIN 30 pg (25-35); MEAN CORPUSCULAR HGB CONC 34 g/dL (31-37); MEAN CORPUSCULAR VOLUME 90 fL (79-100); MONO % 5 % (0-9); NEUT # 16.9 x10^3/uL (1.8-7.7); NEUT % 78 % (31-73); PLATELET COUNT 405 x10^3/uL (140-400); POTASSIUM 3.4 mmol/L (3.5-5.1); RED BLOOD COUNT 4.78 x10^6/uL (3.50-5.40); RED CELL DISTRIBUTION WIDTH 13.7 % (11.5-14.5); WHITE BLOOD COUNT 21.7 x10^3/uL (4.0-11.0)
[2020-11-24 18:42] LABS: ALBUMIN 3.5 g/dL (3.4-5.0); ALBUMIN/GLOBULIN RATIO 0.9 (1.0-1.7); MAGNESIUM 1.7 mg/dL (1.8-2.4); TOTAL PROTEIN 7.6 g/dL (6.4-8.2)
[2020-11-24 18:59] LABS: INFLUENZA A PATIENT NEGATIVE (NEGATIVE); INFLUENZA B PATIENT NEGATIVE (NEGATIVE)
[2020-11-24 19:19] LABS: % BANDS 12 % (0-9); % LYMPHS 21 % (24-48); % METAS 1 % (0-0); % MONOS 4 % (0-10); % SEGS 62 % (35-66)
[2020-11-24 19:20] LABS: PLT ESTIMATE ADEQUATE (ADEQUATE)
[2020-11-24] MEDS ORDERED: CONTRAST GIVEN. MC PRN (19:30)
[2020-11-24] MEDS ORDERED: IOHEXOL 300 MG/ML 100ML VIAL. IV ONE (20:00)
--- NOTE | 2020-11-24 20:03 | RAD ---
Exam: CT of abdomen and pelvis with contrast INDICATION: Abdominal pain, nausea vomiting diarrhea TECHNIQUE: Sequential axial images through the abdomen and pelvis obtained following the administrati on of 75 mL of Omni 300 IV contrast. Sagittal and coronal reformatted images were reconstructed from the axial data and reviewed. Comparisons: 09/20/2019 FINDINGS: Heart size is normal. No pericardial effusion. Visualized lung bases are clear. No pleural effusion. Diffuse hepatic steatosis. Spleen, pancreas and adrenals are unremarkable. Gallbladder is absent. No perinephric inflammation or hydronephrosis. No renal or ureteral calculi are identified. Bladder is partially distended and not well evaluated. Uterus is nonenlarged. No abnormal adnexal mas s. There is wall thickening at the transverse colon splenic flexure of the colon. Mild adjacent fat stra nding. Remainder of the large and small bowel are unremarkable. Appendix is not identified. No free i ntra-abdominal air or fluid. No obstruction. Abdominal aorta has a normal course and caliber. Abdominal vasculature is patent. No enlarged intra-abdominal lymph nodes are identified. No suspicious osseous lesions or acute fractures. IMPRESSION: 1. Diffuse wall thickening at the transverse colon favored to be infectious or inflammatory in etiol ogy. 2. Diffuse hepatic steatosis. Exposure: One or more of the following in the visualized dose reduction techniques were utilized for this examination: 1. Automated exposure control 2. Adjustment of the MA and/or KV according to patient size 3. Use of iterative of reconstructive technique Electronically signed by: Linda Guerrero MD (11/24/2020 8:00 PM) [facility]
--- NOTE | 2020-11-24 20:17 | ED.ADGEN ---
Past Medical History Past Medical History: Diabetes-Type II, Hypertension, Hypothyroid, Kidney Stone Past Surgical History: Cholecystectomy, , Hysterectomy, Other Additional Past Surgical Histo: MINISCUS REPAIR R Smoking Status: Never Smoker Alcohol Use: None Drug Use: None General Adult EDM: Chief Complaint: ABDOMINAL PAIN HPI: HPI: Patient is a 50 year old female who presents the emergency department with complaints of nausea, vomiting, diarrhea, headache, body aches, chills, and diffuse abdominal pain since 230 this morning. Patient states she has vomited at least 4 times as she has had over 10 episodes of diarrhea. She denies any hematemesis, or bloody stools. The patient denies any known exposure to COVID- 19 or influenza. She denies any cough, shortness of breath, rash, sore throat, dizziness, chest pain, or palpitations. The patient complains that her entire abdomen hurts, she describes it as a crampy pain. Patient currently rates her pain a 5 out of 10 on the pain scale, she states that the pain increases when she tries to eat or drink anything, she denies any alleviating factors. Review of Systems: Review of Systems: Complete ROS is negative unless otherwise noted in HPI. Current Medications: Current Medications Medications (Trade) Dose Ordered Sig/Sohail Start Time Stop Time Status Last Admin Dose Admin Famotidine (Pepcid Vial) 20 mg 1X ONCE 11/24/20 18:30 11/24/20 18:31 DC 11/24/20 18:27 20 MG Fentanyl Citrate (Fentanyl 2ml Vial) 50 mcg 1X ONCE 11/24/20 18:30 11/24/20 18:31 DC 11/24/20 18:29 50 MCG Info (CONTRAST GIVEN -- Rx MONITORING) 1 each PRN DAILY PRN 11/24/20 19:30 11/26/20 19:29 Iohexol (Omnipaque 300 Mg/ml) 75 ml 1X ONCE 11/24/20 20:00 11/24/20 20:01 DC 11/24/20 19:48 75 ML Metronidazole 100 ml @ 100 mls/hr 1X ONCE 11/24/20 20:30 11/24/20 21:29 Ondansetron HCl (Zofran) 4 mg 1X ONCE 11/24/20 18:30 11/24/20 18:31 DC 11/24/20 18:26 4 MG Sodium Chloride 1,000 ml @ 1,000 mls/hr 1X ONCE 11/24/20 18:30 11/24/20 19:29 DC 11/24/20 18:25 1,000 MLS/HR Allergies: Allergies: Allergies Coded Allergies Type Severity Reaction Last Updated Verified Penicillins Allergy Severe Swelling 07/28/19 Yes Physical Exam: PE: See Above Constitutional: Well developed, well nourished, no acute distress, non-toxic appearance, appears uncomfortable, obese. [] HENT: Normocephalic, atraumatic, bilateral external ears normal, nose normal, dry mucous membranes. [] Eyes: PERRLA, EOMI, conjunctiva normal, no discharge. [] Neck: Normal range of motion, no stridor. [] Cardiovascular:Heart rate regular rhythm Lungs & Thorax: Respirations even and unlabored, no retractions, no respiratory distress Abdomen: soft, nonspecific tenderness to palpation, no rebound tenderness, no guarding, no palpable mass Skin: Warm, dry, no erythema, no rash. [] Extremities: No cyanosis, ROM intact, no edema. [] Neurologic: Alert and oriented X 3, no focal deficits noted. [] Psychologic: Affect normal, judgement normal, mood normal. [] Current Patient Data: Labs: Laboratory Tests Test 11/24/20 18:00 11/24/20 18:35 White Blood Count 21.7 x10^3/uL (4.0-11.0) H Red Blood Count 4.78 x10^6/uL (3.50-5.40) Hemoglobin 14.6 g/dL (12.0-15.5) Hematocrit 43.1 % (36.0-47.0) Mean Corpuscular Volume 90 fL (79-100) Mean Corpuscular Hemoglobin 30 pg (25-35) Mean Corpuscular Hemoglobin Concent 34 g/dL (31-37) Red Cell Distribution Width 13.7 % (11.5-14.5) Platelet Count 405 x10^3/uL (140-400) H Neutrophils (%) (Auto) 78 % (31-73) H Lymphocytes (%) (Auto) 16 % (24-48) L Monocytes (%) (Auto) 5 % (0-9) Eosinophils (%) (Auto) 1 % (0-3) Basophils (%) (Auto) 0 % (0-3) Neutrophils # (Auto) 16.9 x10^3/uL (1.8-7.7) H Lymphocytes # (Auto) 3.5 x10^3/uL (1.0-4.8) Monocytes # (Auto) 1.0 x10^3/uL (0.0-1.1) Eosinophils # (Auto) 0.2 x10^3/uL (0.0-0.7) Basophils # (Auto) 0.1 x10^3/uL (0.0-0.2) Segmented Neutrophils % 62 % (35-66) Band Neutrophils % 12 % (0-9) H Lymphocytes % 21 % (24-48) L Monocytes % 4 % (0-10) Metamyelocytes % 1 % (0-0) H Platelet Estimate Adequate (ADEQUATE) Sodium Level 133 mmol/L (136-145) L Potassium Level 3.4 mmol/L (3.5-5.1) L Chloride Level 96 mmol/L (98-107) L Carbon Dioxide Level 24 mmol/L (21-32) Anion Gap 13 (6-14) Blood Urea Nitrogen 10 mg/dL (7-20) Creatinine 0.8 mg/dL (0.6-1.0) Estimated GFR (Cockcroft-Gault) 76.6 BUN/Creatinine Ratio 13 (6-20) Glucose Level 148 mg/dL (70-99) H Calcium Level 9.0 mg/dL (8.5-10.1) Magnesium Level 1.7 mg/dL (1.8-2.4) L Total Bilirubin 1.0 mg/dL (0.2-1.0) Aspartate Amino Transferase (AST) 11 U/L (15-37) L Alanine Aminotransferase (ALT) 12 U/L (14-59) L Alkaline Phosphatase 78 U/L (46-116) Total Protein 7.6 g/dL (6.4-8.2) Albumin 3.5 g/dL (3.4-5.0) Albumin/Globulin Ratio 0.9 (1.0-1.7) L Lipase 79 U/L (73-393) Influenza Type A Antigen Negative (NEGATIVE) Influenza Type B Antigen Negative (NEGATIVE) Laboratory Tests 11/24/20 18:00 Laboratory Tests 11/24/20 18:00 Vital Signs: Vital Signs Date Time Temp Pulse Resp B/P (MAP) Pulse Ox O2 Delivery O2 Flow Rate FiO2 11/24/20 18:30 80 16 139/65 (89) 97 Room Air 11/24/20 17:40 98.1 98.1 EKG: EKG: [] Heart Score: Risk Factors: Risk Factors: DM, Current or recent (<one month) smoker, HTN, HLP, family history of CAD, obesity. Risk Scores: Score 0 - 3: 2.5% MACE over next 6 weeks - Discharge Home Score 4 - 6: 20.3% MACE over next 6 weeks - Admit for Clinical Observation Score 7 - 10: 72.7% MACE over next 6 weeks - Early Invasive Strategies Radiology/Procedures: Radiology/Procedures: PROCEDURE: CT ABD PELV W/ IV CONTRST ONLY Exam: CT of abdomen and pelvis with contrast INDICATION: Abdominal pain, nausea vomiting diarrhea TECHNIQUE: Sequential axial images through the abdomen and pelvis obtained following the administration of 75 mL of Omni 300 IV contrast. Sagittal and coronal reformatted images were reconstructed from the axial data and reviewed. Comparisons: 09/20/2019 FINDINGS: Heart size is normal. No pericardial effusion. Visualized lung bases are clear. No pleural effusion. Diffuse hepatic steatosis. Spleen, pancreas and adrenals are unremarkable. Gallbladder is absent. No perinephric inflammation or hydronephrosis. No renal or ureteral calculi are identified. Bladder is partially distended and not well evaluated. Uterus is nonenlarged. No abnormal adnexal mass. There is wall thickening at the transverse colon splenic flexure of the colon. Mild adjacent fat stranding. Remainder of the large and small bowel are unremarkable. Appendix is not identified. No free intra-abdominal air or fluid. No obstruction. Abdominal aorta has a normal course and caliber. Abdominal vasculature is patent. No enlarged intra-abdominal lymph nodes are identified. No suspicious osseous lesions or acute fractures. IMPRESSION: 1. Diffuse wall thickening at the transverse colon favored to be infectious or inflammatory in etiology. 2. Diffuse hepatic steatosis. [] Course & Med Decision Making: Course & Med Decision Making Pertinent Labs and Imaging studies reviewed. (See chart for details)2017-spoke with Dr. Humphrey who is the admitting physician, and care was assumed following discussion of patient. Will admit the patient for PUI and colitis. Will order Cipro and Flagyl IV. Patient's vital signs stable. Patient remains afebrile, appears nontoxic, respirations even and unlabored. Patient will be admitted to the medical/surgical floor. Patient's case and plan of care also discussed with Dr. Amadeo Reyes Disclaimer: Eric Disclaimer: This electronic medical record was generated, in whole or in part, using a voice recognition dictation system. Departure Departure Impression: Primary Impression: Person under investigation for COVID-19 Additional Impression: Colitis Disposition: ADMITTED INPT THIS HOSP Admitting Physician: JOSEF ([facility]) Condition: STABLE Referrals: CHRISTINE SARAVIA MD (PCP) Problem Qualifiers SOLANGE CHAMBERLAIN APRN Nov 24, 2020 20:17
[2020-11-24 20:41] LABS: BILIRUBIN,URINE NEGATIVE (NEG); CLARITY,URINE CLEAR; COLOR,URINE YELLOW; NITRITE,URINE NEGATIVE (NEG); PH,URINE 5.5 (<5.0-8.0); PROTEIN,URINE 30 mg/dL (NEG-TRACE); UROBILINOGEN,URINE 0.2 mg/dL (0.2 mg/dL)
[2020-11-24] MEDS ORDERED: CIPROFLOXACIN 400MG PREMIX 200 ML IV ONE (21:00)
[2020-11-24 21:01] LABS: BACTERIA,URINE 0 /HPF (0-FEW); RBC,URINE RARE /HPF (0-2); WBC,URINE 0 /HPF (0-4)
[2020-11-24 22:40] VITALS: BP 130/69
[2020-11-24] MEDS ORDERED: fentaNYL PF VIAL 100 MCG/2 ML VIAL IVP PRN ×2 (23:45)
[2020-11-24] MEDS: IV NORMAL SALINE 1000ML BAG 1,000 ML IV SCH (23:54)
[2020-11-25 03:00] VITALS: BP 118/57
[2020-11-25 07:00] VITALS: BP 146/70
--- NOTE | 2020-11-25 10:54 | PDOC2 ---
CONSULT Date of Consult Date of Consult DATE: 11/25/20 TIME: 10:51 Reason for Consult Reason for Consult: Diarrhea/abd pain Past Medical History Cardiovascular: No pertinent hx Pulmonary: No pertinent hx GI: No pertinent hx Heme/Onc: No pertinent hx Hepatobiliary: No pertinent hx Psych: No pertinent hx Past Surgical History Past Surgical History: Hysterectomy Current Problem List Problem List Problems Medical Problems: (1) Colitis Status: Acute (2) Person under investigation for COVID-19 Status: Acute Current Medications Current Medications Current Medications Sodium Chloride 1,000 ml @ 1,000 mls/hr 1X ONCE IV Last administered on 11/24/20at 18:25; Start 11/24/20 at 18:30; Stop 11/24/20 at 19:29; Status DC Ondansetron HCl (Zofran) 4 mg 1X ONCE IV Last administered on 11/24/20at 18:26; Start 11/24/20 at 18:30; Stop 11/24/20 at 18:31; Status DC Fentanyl Citrate (Fentanyl 2ml Vial) 50 mcg 1X ONCE IV Last administered on 11/24/20at 18:29; Start 11/24/20 at 18:30; Stop 11/24/20 at 18:31; Status DC Famotidine (Pepcid Vial) 20 mg 1X ONCE IVP Last administered on 11/24/20at 18:27; Start 11/24/20 at 18:30; Stop 11/24/20 at 18:31; Status DC Iohexol (Omnipaque 300 Mg/ml) 75 ml 1X ONCE IV Last administered on 11/24/20at 19:48; Start 11/24/20 at 20:00; Stop 11/24/20 at 20:01; Status DC Info (CONTRAST GIVEN -- Rx MONITORING) 1 each PRN DAILY PRN MC SEE COMMENTS; Start 11/24/20 at 19:30; Stop 11/26/20 at 19:29 Ciprofloxacin/ Dextrose 200 ml @ 200 mls/hr 1X ONCE IV Last administered on 11/24/20at 23:52; Start 11/24/20 at 21:00; Stop 11/24/20 at 21:59; Status DC Metronidazole 100 ml @ 100 mls/hr 1X ONCE IV Last administered on 11/24/20at 23:52; Start 11/24/20 at 20:30; Stop 11/24/20 at 21:29; Status DC Sodium Chloride 1,000 ml @ 80 mls/hr [id number] IV Last administered on 11/24/20at 23:54; Start 11/25/20 at 00:00 Metronidazole 100 ml @ 100 mls/hr Q8HRS IV Last administered on 11/25/20at 05:23; Start 11/25/20 at 06:00 Fentanyl Citrate (Fentanyl 2ml Vial) 50 mcg PRN Q3HRS PRN IVP SEVERE PAIN 7-10; Start 11/24/20 at 23:45 Fentanyl Citrate (Fentanyl 2ml Vial) 25 mcg PRN Q3HRS PRN IVP MODERATE PAIN 4-6 Last administered on 11/24/20at 23:57; Start 11/24/20 at 23:45 Active Scripts Active Naproxen 500 Mg Tablet 500 Mg PO BID Percocet 5-325 Mg Tablet (Oxycodone/Acetaminophen) 1 Each Tablet 1 Tab PO PRN Q6HRS PRN Reported Protonix (Pantoprazole Sodium) 40 Mg Tablet.dr 40 Mg PO DAILYAC Metoprolol Succinate ( Xl ) (Metoprolol Succinate) 25 Mg Tab.er.24h 1 Tab PO HS Levothyroxine Sodium 100 Mcg Tablet 1 Tab PO DAILY Gabapentin (Gabapentin) 300 Mg Capsule 300 Mg PO TID Metformin Hcl 500 Mg Tablet 500 Mg PO BIDWMEALS Allergies Allergies: Coded Allergies: Penicillins (Verified Allergy, Severe, Swelling, 07/28/19) facial/tongue swelling Vitals VITALS Vital Signs Date Time Temp Pulse Resp B/P (MAP) Pulse Ox O2 Delivery O2 Flow Rate FiO2 11/25/20 08:00 Room Air 11/25/20 07:00 97.2 76 16 146/70 (95) 97 97.2 Labs Labs Laboratory Tests Test 11/24/20 18:00 11/24/20 18:35 11/24/20 20:20 White Blood Count 21.7 x10^3/uL (4.0-11.0) Red Blood Count 4.78 x10^6/uL (3.50-5.40) Hemoglobin 14.6 g/dL (12.0-15.5) Hematocrit 43.1 % (36.0-47.0) Mean Corpuscular Volume 90 fL (79-100) Mean Corpuscular Hemoglobin 30 pg (25-35) Mean Corpuscular Hemoglobin Concent 34 g/dL (31-37) Red Cell Distribution Width 13.7 % (11.5-14.5) Platelet Count 405 x10^3/uL (140-400) Neutrophils (%) (Auto) 78 % (31-73) Lymphocytes (%) (Auto) 16 % (24-48) Monocytes (%) (Auto) 5 % (0-9) Eosinophils (%) (Auto) 1 % (0-3) Basophils (%) (Auto) 0 % (0-3) Neutrophils # (Auto) 16.9 x10^3/uL (1.8-7.7) Lymphocytes # (Auto) 3.5 x10^3/uL (1.0-4.8) Monocytes # (Auto) 1.0 x10^3/uL (0.0-1.1) Eosinophils # (Auto) 0.2 x10^3/uL (0.0-0.7) Basophils # (Auto) 0.1 x10^3/uL (0.0-0.2) Segmented Neutrophils % 62 % (35-66) Band Neutrophils % 12 % (0-9) Lymphocytes % 21 % (24-48) Monocytes % 4 % (0-10) Metamyelocytes % 1 % (0-0) Platelet Estimate Adequate (ADEQUATE) Sodium Level 133 mmol/L (136-145) Potassium Level 3.4 mmol/L (3.5-5.1) Chloride Level 96 mmol/L (98-107) Carbon Dioxide Level 24 mmol/L (21-32) Anion Gap 13 (6-14) Blood Urea Nitrogen 10 mg/dL (7-20) Creatinine 0.8 mg/dL (0.6-1.0) Estimated GFR (Cockcroft-Gault) 76.6 BUN/Creatinine Ratio 13 (6-20) Glucose Level 148 mg/dL (70-99) Calcium Level 9.0 mg/dL (8.5-10.1) Magnesium Level 1.7 mg/dL (1.8-2.4) Total Bilirubin 1.0 mg/dL (0.2-1.0) Aspartate Amino Transf (AST/SGOT) 11 U/L (15-37) Alanine Aminotransferase (ALT/SGPT) 12 U/L (14-59) Alkaline Phosphatase 78 U/L (46-116) Total Protein 7.6 g/dL (6.4-8.2) Albumin 3.5 g/dL (3.4-5.0) Albumin/Globulin Ratio 0.9 (1.0-1.7) Lipase 79 U/L (73-393) Influenza Type A Antigen Negative (NEGATIVE) Influenza Type B Antigen Negative (NEGATIVE) Urine Collection Type U cath Urine Color Yellow Urine Clarity Clear Urine pH 5.5 (<5.0-8.0) Urine Specific Ferney >=1.030 (1.000-1.030) Urine Protein 30 mg/dL (NEG-TRACE) Urine Glucose (UA) Negative mg/dL (NEG) Urine Ketones (Stick) Negative mg/dL (NEG) Urine Blood Negative (NEG) Urine Nitrite Negative (NEG) Urine Bilirubin Negative (NEG) Urine Urobilinogen Dipstick 0.2 mg/dL (0.2 mg/dL) Urine Leukocyte Esterase Negative (NEG) Urine RBC Rare /HPF (0-2) Urine WBC 0 /HPF (0-4) Urine Squamous Epithelial Cells Mod /LPF Urine Bacteria 0 /HPF (0-FEW) Urine Mucus Slight /LPF Laboratory Tests Test 11/24/20 18:00 11/24/20 18:35 11/24/20 20:20 White Blood Count 21.7 x10^3/uL (4.0-11.0) Red Blood Count 4.78 x10^6/uL (3.50-5.40) Hemoglobin 14.6 g/dL (12.0-15.5) Hematocrit 43.1 % (36.0-47.0) Mean Corpuscular Volume 90 fL (79-100) Mean Corpuscular Hemoglobin 30 pg (25-35) Mean Corpuscular Hemoglobin Concent 34 g/dL (31-37) Red Cell Distribution Width 13.7 % (11.5-14.5) Platelet Count 405 x10^3/uL (140-400) Neutrophils (%) (Auto) 78 % (31-73) Lymphocytes (%) (Auto) 16 % (24-48) Monocytes (%) (Auto) 5 % (0-9) Eosinophils (%) (Auto) 1 % (0-3) Basophils (%) (Auto) 0 % (0-3) Neutrophils # (Auto) 16.9 x10^3/uL (1.8-7.7) Lymphocytes # (Auto) 3.5 x10^3/uL (1.0-4.8) Monocytes # (Auto) 1.0 x10^3/uL (0.0-1.1) Eosinophils # (Auto) 0.2 x10^3/uL (0.0-0.7) Basophils # (Auto) 0.1 x10^3/uL (0.0-0.2) Segmented Neutrophils % 62 % (35-66) Band Neutrophils % 12 % (0-9) Lymphocytes % 21 % (24-48) Monocytes % 4 % (0-10) Metamyelocytes % 1 % (0-0) Platelet Estimate Adequate (ADEQUATE) Sodium Level 133 mmol/L (136-145) Potassium Level 3.4 mmol/L (3.5-5.1) Chloride Level 96 mmol/L (98-107) Carbon Dioxide Level 24 mmol/L (21-32) Anion Gap 13 (6-14) Blood Urea Nitrogen 10 mg/dL (7-20) Creatinine 0.8 mg/dL (0.6-1.0) Estimated GFR (Cockcroft-Gault) 76.6 BUN/Creatinine Ratio 13 (6-20) Glucose Level 148 mg/dL (70-99) Calcium Level 9.0 mg/dL (8.5-10.1) Magnesium Level 1.7 mg/dL (1.8-2.4) Total Bilirubin 1.0 mg/dL (0.2-1.0) Aspartate Amino Transf (AST/SGOT) 11 U/L (15-37) Alanine Aminotransferase (ALT/SGPT) 12 U/L (14-59) Alkaline Phosphatase 78 U/L (46-116) Total Protein 7.6 g/dL (6.4-8.2) Albumin 3.5 g/dL (3.4-5.0) Albumin/Globulin Ratio 0.9 (1.0-1.7) Lipase 79 U/L (73-393) Influenza Type A Antigen Negative (NEGATIVE) Influenza Type B Antigen Negative (NEGATIVE) Urine Collection Type U cath Urine Color Yellow Urine Clarity Clear Urine pH 5.5 (<5.0-8.0) Urine Specific Ferney >=1.030 (1.000-1.030) Urine Protein 30 mg/dL (NEG-TRACE) Urine Glucose (UA) Negative mg/dL (NEG) Urine Ketones (Stick) Negative mg/dL (NEG) Urine Blood Negative (NEG) Urine Nitrite Negative (NEG) Urine Bilirubin Negative (NEG) Urine Urobilinogen Dipstick 0.2 mg/dL (0.2 mg/dL) Urine Leukocyte Esterase Negative (NEG) Urine RBC Rare /HPF (0-2) Urine WBC 0 /HPF (0-4) Urine Squamous Epithelial Cells Mod /LPF Urine Bacteria 0 /HPF (0-FEW) Urine Mucus Slight /LPF Assessment/Plan Assessment/Plan Diarrhea- with abnl Ct scan, infectious colitis leads differential. Ischemic colitis, new onset IBD, and/or malignancy possible as well. Plan IV fludis/antibiotics serial CBCs/await stool cultures colonoscopy to further assess most likely as o/p Full note dictated RUPERTO CADE MD Nov 25, 2020 10:54
[2020-11-25 11:00] VITALS: BP 146/76
--- NOTE | 2020-11-25 12:07 | HP ---
ADMIT DATE: CHIEF COMPLAINT: Abdominal pain. HISTORY OF PRESENT ILLNESS: The patient is a pleasant 50-year-old female who presented to the ER with abdominal pain, rated at 7/10. She has associated nausea. It has been occurring since 2:00 this morning. Imaging studies are showing possible colitis. I discussed the case with ER physician. We are going to admit the patient and consult GI. PAST MEDICAL HISTORY: Diabetes, hypertension, hypothyroidism, kidney stones, cholecystectomy, , hysterectomy, meniscus repair of the right knee. ALLERGIES: PENICILLIN. FAMILY HISTORY: Diabetes. SOCIAL HISTORY: She does not drink, smoke or take drugs. MEDICATIONS: Reviewed, please refer to the MRAD. REVIEW OF SYSTEMS: GENERAL: No history of weight change, weakness or fevers. SKIN: No bruising, hair changes or rashes. EYES: No blurred, double or loss of vision. NOSE AND THROAT: No history of nosebleeds, hoarseness or sore throat. HEART: No history of palpitations, chest pain or shortness of breath on exertion. LUNGS: Denies cough, hemoptysis, wheezing or shortness of breath. GASTROINTESTINAL: Denies changes in appetite, nausea, vomiting, diarrhea or constipation. GENITOURINARY: No history of frequency, urgency, hesitancy or nocturia. NEUROLOGIC: Denies history of numbness, tingling, tremor or weakness. PSYCHIATRIC: No history of panic, anxiety or depression. ENDOCRINE: No history of heat or cold intolerance, polyuria or polydipsia. EXTREMITIES: Denies muscle weakness, joint pain, pain on walking or stiffness. PHYSICAL EXAMINATION: VITALS: Within normal limits and are stable. GENERAL: No apparent distress. Alert and oriented. HEENT: Normal cephalic atraumatic, external auditory canals are patent. EYES: Extraocular muscles are intact, pupils are equally round and reactive to light and accommodation. MUSCULOSKELETAL: Well developed, well nourished, good range of motion. ENDOCRINE: No thyromegaly was palpated. LYMPHATICS: No cervical chain or axillary nodes were noted. HEMATOPOIETIC: No bruising. NECK: Supple, no JVD, no thyromegaly was noted. LUNGS: Clear to auscultation in all lung miller without rhonchi or wheezing. HEART: RRR, S1, S2 present. Peripheral pulses intact, no obvious murmurs were noted. ABDOMEN: Soft, nontender. Positive bowel sounds no organomegaly, normal bowel sounds. EXTREMITIES: Without any cyanosis, clubbing, or edema. Pedal pulses intact, Homans sign is negative. NEUROLOGIC: Normal speech, normal tone. A and O x 3, moves all extremities, no obvious focal deficits. PSYCHIATRIC: Normal affect, normal mood. Stable. SKIN: No ulcerations or rashes, good skin turgor, no jaundice. VASCULAR: Good capillary refill, neurovascular bundle appears to be intact. LABORATORY DATA: White count 21. Electrolytes: Sodium 133, potassium 3.4, chloride 96, bicarbonate 24, BUN 10, creatinine 0.8, glucose 148. AST and ALT are low at 11 and 12 respectively. Urinalysis negative. Influenza testing is negative. CT of the abdomen shows: 1. Diffuse wall thickening of the transverse colon favored to be infectious. 2. Diffuse hepatic steatosis. ASSESSMENT AND PLAN: Colitis, leukocytosis, hyponatremia, hypokalemia, hyperglycemia. The patient has been admitted. We will consult GI. IV Cipro, IV Flagyl, home meds, DVT prophylaxis. Full code. Rule out COVID-19. Clear liquid diet if she can tolerate it. P.r.n. fentanyl, IV fluids. Trend labs. ERNESTO HEREDIA DO DR: RENETTA/godfrey JOB#: [id number] / [id number]
[2020-11-25] MEDS: IV NORMAL SALINE 1000ML BAG 1,000 ML IV SCH ×2 (12:30→21:51)
[2020-11-25 15:00] VITALS: BP 146/79
--- NOTE | 2020-11-25 18:42 | CONS ---
DATE OF CONSULTATION: 11/25/2020 REASON FOR CONSULTATION: Abdominal pain, diarrhea. HISTORY OF PRESENT ILLNESS: A 50-year-old female with past medical history of diabetes, hypertension, hypothyroidism, nephrolithiasis, status post cholecystectomy, , hysterectomy as well as meniscus repair, knee seen with a 24-hour history of nausea, vomiting, and diarrhea with body aches. Pain was so severe that she was unable to keep anything down. She has been brought to the hospital for fluids, IV hydration and pain control. Subsequent imaging did reveal thickening on CT scan of the transverse colon. No bleeding was encountered. No one else at home is presently ill. White count on admission was 21.7. Hemoglobin is 14.6. No one else at home is presently ill. There is no family history of inflammatory bowel disease and she has undergone previous GI studies. She is otherwise without additional complaints, presently is feeling better. PAST MEDICAL HISTORY: Diabetes, hypertension, hypothyroidism, nephrolithiasis. PAST SURGICAL HISTORY: Status post cholecystectomy, , hysterectomy, knee meniscus repair. FAMILY AND SOCIAL HISTORY: Nondrinker, nonsmoker. ALLERGIES: PENICILLIN. MEDICATIONS: Include metronidazole, Cipro. REVIEW OF SYSTEMS: Per records. PHYSICAL EXAMINATION: GENERAL: Reveals a well-nourished, well-developed female who is alert, cooperative, in no acute distress. VITAL SIGNS: Temperature 97.2, pulse 76, respirations 16, blood pressure 146/70. LUNGS: Clear. CARDIOVASCULAR: Reveals an S1, S2 without S3, S4 or appreciable murmur. ABDOMEN: Reveals a soft abdomen, normal bowel sounds, with mild diffuse tenderness. EXTREMITIES: Reveals no cyanosis, clubbing or edema. Multiple surgical incisions are noted. LABORATORY STUDIES: On admission, hemoglobin is 133, potassium 3.4, chloride 96, bicarbonate 24, BUN is 10, creatinine 0.8, glucose 148, calcium 9.0, magnesium 1.7, total bilirubin 1.0, AST of 11, ALT of 12, alkaline phosphatase 78, total protein 7.6, albumin 3.5, lipase is 75. Hemoglobin is 14.6, hematocrit 40.1, white count 21.7, platelet count is 105,000. Stool studies are pending. CT scan does reveal previous cholecystectomy, hysterectomy as well as diffuse wall thickening of the transverse colon. IMPRESSION AND RECOMMENDATIONS: Acute colitis, most likely is secondary to infectious colitis, inflammatory bowel disease, ischemic colitis, colon cancer, possible, less likely, therefore, recommend medical therapy, fluids, antibiotics, analgesics. Advance diet as tolerated. Serial white counts awaiting stool cultures and consider colonoscopy as an inpatient or an outpatient to further assess. RUPERTO CADE MD DR: YESENIA/godfrey JOB#: [id number] / [id number]
[2020-11-25 19:15] VITALS: BP 138/62
[2020-11-25 23:38] VITALS: BP 136/62
[2020-11-26 03:45] VITALS: BP 131/64
[2020-11-26 07:00] VITALS: BP 129/64
[2020-11-26] MEDS ORDERED: LISI10TA16 PO (08:47)
[2020-11-26 09:38] LABS: CREATININE 0.8 mg/dL (0.6-1.0); GFR 76.6; MAGNESIUM 1.7 mg/dL (1.8-2.4); POTASSIUM 3.4 mmol/L (3.5-5.1)
[2020-11-26 11:00] VITALS: BP 141/87
[2020-11-26] MEDS ORDERED: CIPROFLOXACIN HCL 250 MG TABLET. PO SCH (11:00)
--- NOTE | 2020-11-26 11:09 | PDOC ---
[facility] [facility] PROGRESS NOTE Date of Service DOS: DATE: 11/26/20 TIME: 11:04 Chief Complaint Chief Complaint Colitis History of Present Illness History of Present Illness 11/26/20 Patient seen and examined in room Discussed possible d/c today, and explained the importance of completely finishing her outpatient antibiotics course Explained the process of scheduling a colonoscopy and emphasized te importance of doing it soon Patient had chicken noodle soup and handled it well, nursing will continue to advance diet DWRN Chart reviewed Vitals/I&O Vitals/I&O: Vital Signs Date Time Temp Pulse Resp B/P (MAP) Pulse Ox O2 Delivery O2 Flow Rate FiO2 11/26/20 08:00 Room Air 11/26/20 07:00 97.2 65 18 129/64 (85) 97 97.2 I & O 11/25/20 11/25/20 11/26/20 15:00 23:00 07:00 Intake Total 250 ml 100 ml Balance 250 ml 100 ml Physical Exam General: Alert, Oriented X3, Cooperative, No acute distress Heart: Regular rate Lungs: Clear Abdomen: Soft Skin: No breakdown, No significant lesion Labs Labs: Laboratory Tests Test 11/26/20 09:05 Sodium Level 138 mmol/L (136-145) Potassium Level 3.4 mmol/L (3.5-5.1) Chloride Level 106 mmol/L (98-107) Carbon Dioxide Level 25 mmol/L (21-32) Anion Gap 7 (6-14) Blood Urea Nitrogen 7 mg/dL (7-20) Creatinine 0.8 mg/dL (0.6-1.0) Estimated GFR (Cockcroft-Gault) 76.6 Glucose Level 200 mg/dL (70-99) Calcium Level 8.0 mg/dL (8.5-10.1) Magnesium Level 1.7 mg/dL (1.8-2.4) Review of Systems Review of Systems: Patient denied weakness, headache, abnormal bleeding Assessment and Plan Assessmemt and Plan Problems Medical Problems: (1) Colitis Status: Acute (2) Person under investigation for COVID-19 Status: Acute Diabetes Hypertension Hypothyroidism Kidney stones, cholecystectomy Hysterectomy Meniscus repair of the right knee. Plan Possible d/c later today Replacing magnesium and potassium via IV prior to dc Advance diet as tolerated Will d/c on PO Flagyl and ciprofloxacin Outpatient colonoscopy Cont IV fluids Cont pain meds PRN cont pain meds Full code Comment Review of Relevant I have reviewed the following items milady (where applicable) has been applied. Justifications for Admission Other Justification ERNESTO HEREDIA III DO Nov 26, 2020 11:09
[2020-11-26] MEDS ORDERED: POTASSIUM BICARB 20 MEQ EFFERVESCENT TABLET. PO ONE (11:15)
[2020-11-26] MEDS ORDERED: MAGNESIUM SULFATE 2GM 50 ML IV ONE (11:30)
--- NOTE | 2020-11-26 12:38 | DS ---
DATE OF DISCHARGE: 11/26/2020 ADMISSION DIAGNOSES: Colitis, hyponatremia, leukocytosis, hypokalemia, and hyperglycemia. DISCHARGE DIAGNOSES: Resolving colitis, history of diabetes, hypertension, hypothyroidism, kidney stones, cholecystectomy, section, hysterectomy, meniscus repair of the right knee. HOSPITAL COURSE: The patient is a pleasant middle-aged female who presented with colitis. She was also noted to have leukocytosis and electrolyte disturbance as per above. She was admitted. We corrected her electrolytes. We gave her IV Flagyl, IV Cipro, consulted GI. Basically over the past 48 hours, she has improved. She wants to go home. I saw her and examined this morning. We plan to discharge on p.o. Flagyl and p.o. Cipro. DISPOSITION: Home. ACTIVITY: As tolerated. DIET: Low sodium. MEDICATIONS: Please see the MRAD. She is on gabapentin 300 t.i.d., Synthroid 100 daily, lisinopril 10 daily, metformin 500 b.i.d., metoprolol 25 mg once a day, naproxen 500 b.i.d., p.r.n. oxycodone, and Protonix 40 p.o. daily. TOTAL TIME: 32 minutes. ERNESTO HEREDIA DO DR: RENETTA/godfrey JOB#: [id number] / [id number]
--- NOTE | 2020-11-26 14:11 | PDOC ---
[facility] PROGRESS NOTE Reason for Follow-up Diarrhea/abd pain Subjective Feeling better Physical Exam Lungs clear CV S1 S2 ABD +BS, soft, mild tenderness Review of Relevant I have reviewed the following items milady (where applicable) has been applied. Labs Laboratory Tests Test 11/24/20 18:00 11/24/20 18:35 11/24/20 20:20 11/25/20 04:00 White Blood Count 21.7 x10^3/uL (4.0-11.0) Red Blood Count 4.78 x10^6/uL (3.50-5.40) Hemoglobin 14.6 g/dL (12.0-15.5) Hematocrit 43.1 % (36.0-47.0) Mean Corpuscular Volume 90 fL (79-100) Mean Corpuscular Hemoglobin 30 pg (25-35) Mean Corpuscular Hemoglobin Concent 34 g/dL (31-37) Red Cell Distribution Width 13.7 % (11.5-14.5) Platelet Count 405 x10^3/uL (140-400) Neutrophils (%) (Auto) 78 % (31-73) Lymphocytes (%) (Auto) 16 % (24-48) Monocytes (%) (Auto) 5 % (0-9) Eosinophils (%) (Auto) 1 % (0-3) Basophils (%) (Auto) 0 % (0-3) Neutrophils # (Auto) 16.9 x10^3/uL (1.8-7.7) Lymphocytes # (Auto) 3.5 x10^3/uL (1.0-4.8) Monocytes # (Auto) 1.0 x10^3/uL (0.0-1.1) Eosinophils # (Auto) 0.2 x10^3/uL (0.0-0.7) Basophils # (Auto) 0.1 x10^3/uL (0.0-0.2) Segmented Neutrophils % 62 % (35-66) Band Neutrophils % 12 % (0-9) Lymphocytes % 21 % (24-48) Monocytes % 4 % (0-10) Metamyelocytes % 1 % (0-0) Platelet Estimate Adequate (ADEQUATE) Sodium Level 133 mmol/L (136-145) Potassium Level 3.4 mmol/L (3.5-5.1) Chloride Level 96 mmol/L (98-107) Carbon Dioxide Level 24 mmol/L (21-32) Anion Gap 13 (6-14) Blood Urea Nitrogen 10 mg/dL (7-20) Creatinine 0.8 mg/dL (0.6-1.0) Estimated GFR (Cockcroft-Gault) 76.6 BUN/Creatinine Ratio 13 (6-20) Glucose Level 148 mg/dL (70-99) Calcium Level 9.0 mg/dL (8.5-10.1) Magnesium Level 1.7 mg/dL (1.8-2.4) Total Bilirubin 1.0 mg/dL (0.2-1.0) Aspartate Amino Transf (AST/SGOT) 11 U/L (15-37) Alanine Aminotransferase (ALT/SGPT) 12 U/L (14-59) Alkaline Phosphatase 78 U/L (46-116) Total Protein 7.6 g/dL (6.4-8.2) Albumin 3.5 g/dL (3.4-5.0) Albumin/Globulin Ratio 0.9 (1.0-1.7) Lipase 79 U/L (73-393) Influenza Type A Antigen Negative (NEGATIVE) Influenza Type B Antigen Negative (NEGATIVE) Urine Collection Type U cath Urine Color Yellow Urine Clarity Clear Urine pH 5.5 (<5.0-8.0) Urine Specific [place] >=1.030 (1.000-1.030) Urine Protein 30 mg/dL (NEG-TRACE) Urine Glucose (UA) Negative mg/dL (NEG) Urine Ketones (Stick) Negative mg/dL (NEG) Urine Blood Negative (NEG) Urine Nitrite Negative (NEG) Urine Bilirubin Negative (NEG) Urine Urobilinogen Dipstick 0.2 mg/dL (0.2 mg/dL) Urine Leukocyte Esterase Negative (NEG) Urine RBC Rare /HPF (0-2) Urine WBC 0 /HPF (0-4) Urine Squamous Epithelial Cells Mod /LPF Urine Bacteria 0 /HPF (0-FEW) Urine Mucus Slight /LPF Clostridium difficile Toxin (PCR) Negative (NEGATIVE) Test 11/26/20 09:05 Sodium Level 138 mmol/L (136-145) Potassium Level 3.4 mmol/L (3.5-5.1) Chloride Level 106 mmol/L (98-107) Carbon Dioxide Level 25 mmol/L (21-32) Anion Gap 7 (6-14) Blood Urea Nitrogen 7 mg/dL (7-20) Creatinine 0.8 mg/dL (0.6-1.0) Estimated GFR (Cockcroft-Gault) 76.6 Glucose Level 200 mg/dL (70-99) Calcium Level 8.0 mg/dL (8.5-10.1) Magnesium Level 1.7 mg/dL (1.8-2.4) Laboratory Tests Test 11/26/20 09:05 Sodium Level 138 mmol/L (136-145) Potassium Level 3.4 mmol/L (3.5-5.1) Chloride Level 106 mmol/L (98-107) Carbon Dioxide Level 25 mmol/L (21-32) Anion Gap 7 (6-14) Blood Urea Nitrogen 7 mg/dL (7-20) Creatinine 0.8 mg/dL (0.6-1.0) Estimated GFR (Cockcroft-Gault) 76.6 Glucose Level 200 mg/dL (70-99) Calcium Level 8.0 mg/dL (8.5-10.1) Magnesium Level 1.7 mg/dL (1.8-2.4) Medications Current Medications Sodium Chloride 1,000 ml @ 1,000 mls/hr 1X ONCE IV Last administered on 11/24/20at 18:25; Start 11/24/20 at 18:30; Stop 11/24/20 at 19:29; Status DC Ondansetron HCl (Zofran) 4 mg 1X ONCE IV Last administered on 11/24/20at 18:26; Start 11/24/20 at 18:30; Stop 11/24/20 at 18:31; Status DC Fentanyl Citrate (Fentanyl 2ml Vial) 50 mcg 1X ONCE IV Last administered on 11/24/20at 18:29; Start 11/24/20 at 18:30; Stop 11/24/20 at 18:31; Status DC Famotidine (Pepcid Vial) 20 mg 1X ONCE IVP Last administered on 11/24/20at 18:27; Start 11/24/20 at 18:30; Stop 11/24/20 at 18:31; Status DC Iohexol (Omnipaque 300 Mg/ml) 75 ml 1X ONCE IV Last administered on 11/24/20at 19:48; Start 11/24/20 at 20:00; Stop 11/24/20 at 20:01; Status DC Info (CONTRAST GIVEN -- Rx MONITORING) 1 each PRN DAILY PRN MC SEE COMMENTS; Start 11/24/20 at 19:30; Stop 11/26/20 at 19:29 Ciprofloxacin/ Dextrose 200 ml @ 200 mls/hr 1X ONCE IV Last administered on 11/24/20at 23:52; Start 11/24/20 at 21:00; Stop 11/24/20 at 21:59; Status DC Metronidazole 100 ml @ 100 mls/hr 1X ONCE IV Last administered on 11/24/20at 23:52; Start 11/24/20 at 20:30; Stop 11/24/20 at 21:29; Status DC Sodium Chloride 1,000 ml @ 80 mls/hr [id number] IV Last administered on 11/25/20at 21:51; Start 11/25/20 at 00:00 Metronidazole 100 ml @ 100 mls/hr Q8HRS IV Last administered on 11/26/20at 05:02; Start 11/25/20 at 06:00 Fentanyl Citrate (Fentanyl 2ml Vial) 50 mcg PRN Q3HRS PRN IVP SEVERE PAIN 7-10 Last administered on 11/25/20at 12:19; Start 11/24/20 at 23:45 Fentanyl Citrate (Fentanyl 2ml Vial) 25 mcg PRN Q3HRS PRN IVP MODERATE PAIN 4-6 Last administered on 11/24/20at 23:57; Start 11/24/20 at 23:45 Ciprofloxacin (Cipro) 500 mg BID PO Last administered on 11/26/20at 11:17; Start 11/26/20 at 11:00 Potassium Bicarbonate (Potassium Effervescent Tablet) 40 meq 1X ONCE PO Last administered on 11/26/20at 11:35; Start 11/26/20 at 11:15; Stop 11/26/20 at 11:18; Status DC Magnesium Sulfate 50 ml @ 25 mls/hr 1X ONCE IV Last administered on 11/26/20at 11:35; Start 11/26/20 at 11:30; Stop 11/26/20 at 13:29; Status DC Active Scripts Active Naproxen 500 Mg Tablet 500 Mg PO BID Percocet 5-325 Mg Tablet (Oxycodone/Acetaminophen) 1 Each Tablet 1 Tab PO PRN Q6HRS PRN Reported Lisinopril 10 Mg Tablet 1 Tab PO DAILY Protonix (Pantoprazole Sodium) 40 Mg Tablet.dr 40 Mg PO DAILYAC Metoprolol Succinate ( Xl ) (Metoprolol Succinate) 25 Mg Tab.er.24h 1 Tab PO HS Levothyroxine Sodium 100 Mcg Tablet 1 Tab PO DAILY Gabapentin (Gabapentin) 300 Mg Capsule 300 Mg PO TID Metformin Hcl 500 Mg Tablet 500 Mg PO BIDWMEALS Vitals/I & O Vital Sign - Last 24 Hours 11/25/20 11/25/20 11/25/20 11/25/20 15:00 19:15 20:00 23:38 Temp 97.5 98.8 98.0 97.5 98.8 98.0 Pulse 72 64 65 Resp 18 20 16 B/P (MAP) 146/79 (101) 138/62 (87) 136/62 (86) Pulse Ox 97 98 95 O2 Delivery Room Air Room Air Room Air Room Air 11/26/20 11/26/20 11/26/20 11/26/20 03:45 07:00 08:00 11:00 Temp 98.1 97.2 98.1 98.1 97.2 98.1 Pulse 64 65 74 Resp 16 18 18 B/P (MAP) 131/64 (86) 129/64 (85) 141/87 (105) Pulse Ox 96 97 96 O2 Delivery Room Air Room Air Room Air Room Air Intake and Output 11/25/20 11/25/20 11/26/20 15:00 23:00 07:00 Intake Total 250 ml 100 ml Balance 250 ml 100 ml Problem List Problems Medical Problems: (1) Colitis Status: Acute (2) Person under investigation for COVID-19 Status: Acute Assessment Diarrhea- with rectal bleeding and abnl CT scan. most likely secondary to acute self limited infectious colitis. Ischemic colitis, malignancy,and/or new onset IBD possible Plan release home with o/o colonoscopy Justicifation of Admission Dx: Justifications for Admission: Justification of Admission Dx: Yes RUPERTO CADE MD Nov 26, 2020 14:11
--- NOTE | 2020-11-26 14:45 | NUR ---
Discharge Note: THO VALDEZ [address] [place] [address] Discharge instructions and discharge home medications reviewed with Patient and a copy given. All questions have been answered and understanding verbalized. The following instructions and handouts were given: f/u with PCP within two weeks. Discontinued lines and drains: Peripheral IV intact. Patient discharged to Home or Self Care with Self via Wheelchair.
[2020-11-26 15:00] VITALS: BP 130/85
[2020-11-26] MEDS ORDERED: LACTOBACILLUS RHAMNOSUS GG 1 CAPSULE. PO SCH (21:00)
--- NOTE | 2020-11-27 09:08 | NUR ---
IP: Informed pt of negative COVID test. Pt verbalized understanding.
== END 2020-11-26 14:45 | disposition home or self-care (01) | DRG 372 ==
LOC: ER 17:26 → 6 SOUTH 20:43
PROVIDERS: ADMIT Family Medicine; ATTEND Family Medicine
DX: A04.9 Bacterial intestinal infection, unspecified (principal); E87.1 Hypo-osmolality and hyponatremia; K62.5 Hemorrhage of anus and rectum; E03.9 Hypothyroidism, unspecified; E11.65 Type 2 diabetes mellitus with hyperglycemia; E87.6 Hypokalemia; I10 Essential (primary) hypertension; K76.0 Fatty (change of) liver, not elsewhere classified; N20.0 Calculus of kidney; Z20.822 Contact with and (suspected) exposure to COVID-19; Z83.3 Family history of diabetes mellitus; Z87.442 Personal history of urinary calculi; Z90.49 Acquired absence of other specified parts of digestive tract; Z90.710 Acquired absence of both cervix and uterus; Z88.0 Allergy status to penicillin
CPT/HCPCS: 36415; 74177; 80048; 80053; 81001; 83690; 83735; 85007; 85025; 87493; 87804; 96361; 96374; 96375; J0744; J2405; J3010; J3475; J3490; J7030; Q9967; U0003; 99285-25; G0378